=== PATIENT | female | born 1970 | race African-American/Black ===

== ENCOUNTER 2016-09-23 06:40 | Inpatient (IN) | payer MEDICARE, OTHER ==
[~2016-09-23] VITALS: Ht 174 cm; Wt 105.9 kg
[~2016-09-23 06:40] MED LIST: GABA-318 PO; RISP3 PO
[2016-09-23] MEDS ORDERED: AMOX500C2 PO (06:50)
[2016-09-23] MEDS ORDERED: METF500T4 PO (06:50)
[2016-09-23] MEDS ORDERED: ALBU8.5H IH (06:50)
[2016-09-23] MEDS ORDERED: HYDR-4031 PO (06:50)
[2016-09-23] MEDS ORDERED: RISP4 PO (06:50)
[2016-09-23] MEDS ORDERED: ALBU8HFA IN (06:50)
[2016-09-23] MEDS ORDERED: METO25 PO (06:50)
[2016-09-23] MEDS ORDERED: LISI10TA PO (06:50)
[2016-09-23 06:52] LABS: GLUCOSE,POINT OF CARE 183 MG/DL (70-110)
[2016-09-23 07:50] LABS: BASOPHILS # (AUTO) 0.04 K/uL (0.00-0.20); BASOPHILS % (AUTO) 0.6 % (0.0-2.0); EOSINOPHILS # (AUTO) 0.07 K/uL (0.00-0.70); EOSINOPHILS % (AUTO) 1.18 % (1.0-6.0); HEMATOCRIT 28.7 % (36-46); HEMOGLOBIN 9.7 g/dL (12.0-16.0); LYMPHOCYTES % (AUTO) 15.1 % (22.0-44.0); MEAN CORPUSCULAR HEMOGLOBIN 28.8 pg (26.0-34.0); MEAN CORPUSCULAR HGB CONC 33.6 G/dL (31.0-37.0); MEAN CORPUSCULAR VOLUME 86 fL (80-100); MONOCYTES # (AUTO) 0.4 K/uL (0.1-1.0); MONOCYTES % (AUTO) 6.2 % (2.0-9.0); NEUTROPHILS # (AUTO) 4.8 K/uL (1.8-7.7); NEUTROPHILS % (AUTO) 76.9 % (40.0-70.0); PLATELET COUNT (AUTO) 301 K/uL (150-450); RED BLOOD CELL COUNT(AUTO) 3.35 MIL/uL (4.00-5.20); RED CELL DISTRIBUTION WIDTH 15.4 % (11.5-14.5); WHITE BLOOD COUNT (AUTO) 6.3 K/uL (4.5-11.0)
[2016-09-23 07:55] LABS: ANION GAP 10 mmol/L (8-16); CALCIUM, TOTAL 8.2 mg/dL (8.8-10.5); CARBON DIOXIDE 27 mmol/L (22-29); CHLORIDE 108 mmol/L (98-107); GLOMERULAR FILTR. RATE CALC > 60 mL/min (>60); SODIUM SERUM 145 mmol/L (136-145); UREA NITROGEN, BLOOD 5 mg/dL (7-18)
[2016-09-23 08:01] LABS: PROTHROMBIN TIME 10.4 SEC (9.4-11.6)
[2016-09-23 08:18] LABS: B-TYPE NATRIURETIC PEPTIDE 180 pg/mL (0-100)
[2016-09-23 08:20] LABS: ALANINE AMINOTRANSFERASE 15 U/L (12-78); ALBUMIN 3.1 g/dL (3.4-5.0); ASPARTATE AMINOTRANSFERASE 15 U/L (15-37); BILIRUBIN,TOTAL 0.3 mg/dL (0.1-1.0); CREATINE KINASE MB < 0.5 ng/mL (0-5); CREATINE KINASE, TOTAL 83 U/L (26-192); TOTAL PROTEIN, SERUM 6.3 g/dL (6.4-8.2)
[2016-09-23 08:53] LABS: APPEARANCE,URINE CLEAR (CLEAR); GLUCOSE, URINE (UA) NEGATIVE (NEGATIVE); KETONES,URINE NEGATIVE (NEGATIVE); LEUKOCYTE ESTERASE ,URINE NEGATIVE (NEGATIVE); OCCULT BLOOD,URINE NEGATIVE (NEGATIVE); PH,URINE 5.5 (5.0-8.0); PROTEIN,URINE NEGATIVE (NEGATIVE)
[2016-09-23 08:55] LABS: ADD UA MICROSCOPIC NO
[2016-09-23] MEDS ORDERED: FUROSEMIDE 40 MG/4 ML VIAL IVP ONE (09:00)
[2016-09-23] MEDS ORDERED: ONDANSETRON HCL 4 MG/2 ML VIAL IVP PRN ×2 (09:15→19:00)
[2016-09-23] MEDS ORDERED: ACETAMINOPHEN 325 MG TABLET PO PRN ×2 (09:15→19:00)
[2016-09-23] MEDS ORDERED: 0.9% SODIUM CHLORIDE 10 ML SYRINGE IVP PRN ×2 (09:15→19:00)
[2016-09-23 12:22] LABS: GLUCOSE,POINT OF CARE 100 MG/DL (70-110)
[2016-09-23] MEDS ORDERED: IBUPROFEN 600 MG TABLET PO ONE (14:15)
[2016-09-23] MEDS ORDERED: POTASSIUM CHLORIDE 20 MEQ ER TABLET PO ONE (16:00)
[2016-09-23 16:28] VITALS: BP 143/89
[2016-09-23] MEDS ORDERED: IBUPROFEN 600 MG TABLET PO PRN (17:15)
[2016-09-23] MEDS ORDERED: HydrOXYzine PAMOATE 50 MG CAPSULE PO PRN (17:15)
[2016-09-23] MEDS ORDERED: LEVALBUTEROL TARTRATE HFA 45 MCG/PUFF 15 GM INHALER IH PRN (17:15)
[2016-09-23] MEDS ORDERED: PNEUMOCOCCAL VACCINE POLYVALENT 0.5 ML VIAL [PPSV23] IM ONE (18:30)
[2016-09-23] MEDS ORDERED: ALBUTEROL SULFATE 2.5 MG/0.5 ML NEB SOLUTION NEB PRN (19:00)
[2016-09-23] MEDS ORDERED: DEXTROSE 50%-WATER 25 GM/50 ML SYRINGE IVP PRN (19:00)
[2016-09-23] MEDS ORDERED: OxyCODONE HCL/ACETAMINOPHEN 5-325 MG TABLET PO PRN ×2 (19:00)
[2016-09-23] MEDS ORDERED: INSULIN ASPART 100 UNITS/ML SQ PRN (19:00)
[2016-09-23] MEDS ORDERED: MAGNESIUM HYDROXIDE SUSPENSION 30 ML UDCUP PO PRN (19:00)
[2016-09-23] MEDS: MetFORMIN HCL 500 MG TABLET PO SCH (19:10)
[2016-09-23 19:20] VITALS: BP 123/87
[2016-09-23] MEDS: PANTOPRAZOLE SODIUM 40 MG/VIAL IVP SCH (20:43)
[2016-09-23] MEDS: POTASSIUM CHLORIDE 8 MEQ ER TABLET PO SCH (20:43)
[2016-09-23] MEDS: LISINOPRIL 20 MG TABLET PO SCH (20:43)
[2016-09-23] MEDS: FUROSEMIDE 40 MG/4 ML VIAL IVP SCH (20:43)
[2016-09-23] MEDS ORDERED: METOPROLOL TARTRATE 25 MG TABLET PO SCH (21:00)
[2016-09-23 21:39] VITALS: BP 138/87
[2016-09-23] MEDS: RisperiDONE 4 MG TABLET PO SCH (21:41)
[2016-09-23] MEDS: METOPROLOL TARTRATE 25 MG TABLET PO SCH (21:41)
[2016-09-23] MEDS: HEPARIN SODIUM,PORCINE 5,000 UNITS/ML VIAL SQ SCH (21:41)
[2016-09-23] MEDS: DOCUSATE SODIUM 100 MG CAPSULE PO SCH (21:41)
[2016-09-23] MEDS: AMOXICILLIN TRIHYDRATE 500 MG CAPSULE PO SCH (21:41)
[2016-09-23] MEDS: ALBUTEROL SULFATE HFA 90 MCG/PUFF 8 GM INHALER IH SCH (21:42)
[2016-09-23] MEDS: IPRATROPIUM BROMIDE 0.5 MG/2.5 ML NEB SOLUTION NEB SCH (21:44)
[2016-09-23] MEDS: ALBUTEROL SULFATE 2.5 MG/0.5 ML NEB SOLUTION NEB SCH (21:44)
[2016-09-23 23:34] VITALS: BP 122/71
[2016-09-24] MEDS: ALBUTEROL SULFATE 2.5 MG/0.5 ML NEB SOLUTION NEB SCH ×3 (03:26→14:00)
[2016-09-24] MEDS: IPRATROPIUM BROMIDE 0.5 MG/2.5 ML NEB SOLUTION NEB SCH ×3 (03:26→14:00)
[2016-09-24 04:08] VITALS: BP 138/92
[2016-09-24 06:20] LABS: BASOPHILS % (AUTO) 0.7 % (0.0-2.0); EOSINOPHILS % (AUTO) 3.1 % (1.0-6.0); HEMATOCRIT 30.7 % (36-46); HEMOGLOBIN 10.3 g/dL (12.0-16.0); LYMPHOCYTES # (AUTO) 1.4 K/uL (1.0-4.8); LYMPHOCYTES % (AUTO) 18.8 % (22.0-44.0); MEAN CORPUSCULAR HEMOGLOBIN 29.4 pg (26.0-34.0); MEAN CORPUSCULAR HGB CONC 33.6 G/dL (31.0-37.0); MEAN CORPUSCULAR VOLUME 87 fL (80-100); MONOCYTES # (AUTO) 0.5 K/uL (0.1-1.0); MONOCYTES % (AUTO) 6.7 % (2.0-9.0); NEUTROPHILS # (AUTO) 5.3 K/uL (1.8-7.7); NEUTROPHILS % (AUTO) 70.7 % (40.0-70.0); PLATELET COUNT (AUTO) 319 K/uL (150-450); RED BLOOD CELL COUNT(AUTO) 3.51 MIL/uL (4.00-5.20); RED CELL DISTRIBUTION WIDTH 15.5 % (11.5-14.5); WHITE BLOOD COUNT (AUTO) 7.5 K/uL (4.5-11.0)
[2016-09-24 06:36] LABS: B-TYPE NATRIURETIC PEPTIDE 127 pg/mL (0-100)
[2016-09-24 06:42] LABS: ALANINE AMINOTRANSFERASE 13 U/L (12-78); ANION GAP 10 mmol/L (8-16); ASPARTATE AMINOTRANSFERASE 13 U/L (15-37); BILIRUBIN,TOTAL 0.5 mg/dL (0.1-1.0); CALCIUM, TOTAL 8.3 mg/dL (8.8-10.5); CARBON DIOXIDE 27 mmol/L (22-29); CHLORIDE 104 mmol/L (98-107); CREATININE 0.82 mg/dL (0.60-1.30); GLOMERULAR FILTR. RATE CALC > 60 mL/min (>60); POTASSIUM 3.3 mmol/L (3.5-5.1); SODIUM SERUM 141 mmol/L (136-145); TOTAL PROTEIN, SERUM 6.4 g/dL (6.4-8.2); UREA NITROGEN, BLOOD 7 mg/dL (7-18)
[2016-09-24 08:20] VITALS: BP 123/82
[2016-09-24] MEDS ORDERED: LISINOPRIL 20 MG TABLET PO SCH (09:00)
[2016-09-24] MEDS ORDERED: RisperiDONE 4 MG TABLET PO SCH (09:00)
[2016-09-24] MEDS: PANTOPRAZOLE SODIUM 40 MG/VIAL IVP SCH (09:12)
[2016-09-24] MEDS: FUROSEMIDE 40 MG/4 ML VIAL IVP SCH (09:13)
[2016-09-24] MEDS: METOPROLOL TARTRATE 25 MG TABLET PO SCH (09:18)
[2016-09-24] MEDS: AMOXICILLIN TRIHYDRATE 500 MG CAPSULE PO SCH (09:19)
[2016-09-24] MEDS: DOCUSATE SODIUM 100 MG CAPSULE PO SCH (09:19)
[2016-09-24] MEDS: LISINOPRIL 20 MG TABLET PO SCH (09:19)
[2016-09-24] MEDS: RisperiDONE 4 MG TABLET PO SCH (09:19)
[2016-09-24] MEDS: POTASSIUM CHLORIDE 8 MEQ ER TABLET PO SCH (09:19)
[2016-09-24] MEDS: MetFORMIN HCL 500 MG TABLET PO SCH (09:19)
[2016-09-24] MEDS: HEPARIN SODIUM,PORCINE 5,000 UNITS/ML VIAL SQ SCH (09:20)
[2016-09-24] MEDS: ALBUTEROL SULFATE HFA 90 MCG/PUFF 8 GM INHALER IH SCH (09:20)
[2016-09-24 12:40] VITALS: BP 158/75
[2016-09-24] MEDS ORDERED: POTASSIUM CHLORIDE 20 MEQ ER TABLET PO ONE (15:15)
[2016-09-24] MEDS ORDERED: FURO20 PO (15:31)
[2016-09-24] MEDS ORDERED: POTA10TA14 PO (15:35)
[2016-09-25 08:28] LABS: GLUCOSE COMMENT 1 Received Meds; GLUCOSE,POINT OF CARE 121 MG/DL (70-110)
[2016-09-25 08:28] LABS: GLUCOSE COMMENT 1 Received Meds; GLUCOSE,POINT OF CARE 162 MG/DL (70-110)
[2016-09-25 08:28] LABS: GLUCOSE,POINT OF CARE 145 MG/DL (70-110)
[2016-09-25] MEDS ORDERED: FUROSEMIDE 20 MG TABLET PO SCH (09:00)
[2016-09-25 17:32] LABS: GLUCOSE COMMENT 1 Received Meds; GLUCOSE,POINT OF CARE 112 MG/DL (70-110)
== END 2016-09-24 16:45 | disposition home or self-care (01) | DRG 293 ==
LOC: EMS 06:41 → 5S 15:45
PROVIDERS: ADMIT Internal Medicine; ATTEND Internal Medicine
DX: I11.0 Hypertensive heart disease with heart failure (principal); I50.9 Heart failure, unspecified; E11.9 Type 2 diabetes mellitus without complications; J44.9 Chronic obstructive pulmonary disease, unspecified; F20.9 Schizophrenia, unspecified; E66.9 Obesity, unspecified; F17.210 Nicotine dependence, cigarettes, uncomplicated; Z68.35 Body mass index [BMI] 35.0-35.9, adult; Z88.2 Allergy status to sulfonamides; Z88.8 Allergy status to other drugs, medicaments and biological substances; Z79.899 Other long term (current) drug therapy; Z79.84 Long term (current) use of oral hypoglycemic drugs; Z98.891 History of uterine scar from previous surgery
CPT/HCPCS: 82962; 84132; 93005; 93306; 94640; 96372; 96374; 96375; 96376; 99285; C9113; J1644; J1940; J3535

== ENCOUNTER 2016-12-30 01:49 | Inpatient (IN) | payer MEDICARE, MEDICAID ==
[~2016-12-30] VITALS: Ht 175.3 cm; Wt 106.1 kg
[~2016-12-30 01:49] MED LIST changes: +ACYC200C PO; +ALBU8.5H8 IH; +ALBU8HFA IN; +DILT120C88 PO; -GABA-318 PO; +LISI10TA PO; +METO25 PO; +OXCA300T PO; +POTA10TA14 PO; -RISP3 PO; +RISP4 PO; +SIMV-261 PO; +VIST50 PO
[2016-12-30] MEDS ORDERED: QUEtiapine FUMARATE 100 MG TABLET PO PRN (02:45)
[2016-12-30 03:40] VITALS: BP 122/80
[2016-12-30 04:31] LABS: GLUCOSE,POINT OF CARE 250 MG/DL (70-110)
[2016-12-30] MEDS ORDERED: PNEUMOCOCCAL VACCINE POLYVALENT 0.5 ML VIAL [PPSV23] IM ONE (04:45)
[2016-12-30] MEDS ORDERED: INFLUENZA VIRUS VACCINE QVS 2017-18 (3YR+)/PF 60 MCG/0.5 ML SYRINGE IM ONE (04:45)
[2016-12-30] MEDS ORDERED: LISI-662 PO (07:58)
[2016-12-30] MEDS ORDERED: AMIT50TA3 PO (07:58)
[2016-12-30] MEDS ORDERED: ALBU8HFA IH (07:58)
[2016-12-30] MEDS ORDERED: GLIP2.5ER PO (07:58)
[2016-12-30] MEDS ORDERED: HALO5 PO (07:58)
[2016-12-30] MEDS ORDERED: GLUCAGON,HUMAN RECOMBINANT 1 MG VIAL IM PRN (08:00)
[2016-12-30] MEDS ORDERED: TRAZ-147 PO (08:01)
[2016-12-30] MEDS ORDERED: QUET200T PO (08:01)
[2016-12-30] MEDS ORDERED: MIRT30 PO (08:01)
[2016-12-30] MEDS ORDERED: RISP4 PO (08:01)
[2016-12-30 08:04] VITALS: BP 126/75
[2016-12-30] MEDS ORDERED: BENZOCAINE/MENTHOL LOZENGE MM PRN (09:45)
[2016-12-30] MEDS ORDERED: LOPERAMIDE HCL 2 MG CAPSULE PO PRN (09:45)
[2016-12-30] MEDS ORDERED: IBUPROFEN 600 MG TABLET PO PRN (09:45)
[2016-12-30] MEDS ORDERED: PETROLATUM,WHITE 71 GM JELLY TP PRN (09:45)
[2016-12-30] MEDS ORDERED: MAG HYDROX/AL HYDROX/SIMETH ES 30 ML SUSPENSION UDCUP PO PRN (09:45)
[2016-12-30] MEDS ORDERED: ALBUTEROL SULFATE HFA 90 MCG/PUFF 8 GM INHALER IH PRN (09:45)
[2016-12-30] MEDS ORDERED: ONDANSETRON HCL 4 MG TABLET PO PRN (09:45)
[2016-12-30] MEDS ORDERED: ACETAMINOPHEN 325 MG TABLET PO PRN (09:45)
[2016-12-30] MEDS ORDERED: BACITRACIN 28.4 GM OINTMENT TP PRN (09:45)
[2016-12-30] MEDS ORDERED: CloNIDine HCL 0.1 MG TABLET PO PRN (09:45)
[2016-12-30] MEDS ORDERED: MAGNESIUM HYDROXIDE SUSPENSION 30 ML UDCUP PO PRN (09:45)
[2016-12-30 11:22] LABS: GLUCOSE,POINT OF CARE 115 MG/DL (70-110)
[2016-12-30] MEDS: LORazepam 1 MG TABLET PO PRN ×2 (12:32→16:51)
[2016-12-30 16:16] VITALS: BP 120/78
[2016-12-30] MEDS: METOPROLOL TARTRATE 25 MG TABLET PO SCH (16:51)
[2016-12-30 16:58] LABS: GLUCOSE,POINT OF CARE 112 MG/DL (70-110)
[2016-12-30] MEDS: ZOLPIDEM TARTRATE 10 MG TABLET PO PRN (20:17)
[2016-12-30] MEDS: QUEtiapine FUMARATE 200 MG TABLET PO SCH (20:17)
[2016-12-30 20:28] LABS: GLUCOSE,POINT OF CARE 149 MG/DL (70-110)
[2016-12-30] MEDS: INSULIN ASPART 100 UNITS/ML SQ PRN (21:02)
[2016-12-31 06:08] LABS: GLUCOSE,POINT OF CARE 174 MG/DL (70-110)
[2016-12-31] MEDS: MetFORMIN HCL 500 MG TABLET PO SCH (06:28)
[2016-12-31] MEDS: GlipiZIDE 10 MG TABLET PO SCH (06:28)
[2016-12-31] MEDS: INSULIN ASPART 100 UNITS/ML SQ PRN (06:45)
[2016-12-31 07:36] LABS: BASOPHILS % (AUTO) 1.1 % (0.0-2.0); EOSINOPHILS % (AUTO) 3.9 % (1.0-6.0); HEMATOCRIT 35.2 % (36-46); HEMOGLOBIN 12.1 g/dL (12.0-16.0); LYMPHOCYTES # (AUTO) 2.1 K/uL (1.0-4.8); LYMPHOCYTES % (AUTO) 28.9 % (22.0-44.0); MEAN CORPUSCULAR HEMOGLOBIN 29.2 pg (26.0-34.0); MEAN CORPUSCULAR HGB CONC 34.4 G/dL (31.0-37.0); MEAN CORPUSCULAR VOLUME 85 fL (80-100); MONOCYTES # (AUTO) 0.3 K/uL (0.1-1.0); MONOCYTES % (AUTO) 4.6 % (2.0-9.0); NEUTROPHILS # (AUTO) 4.4 K/uL (1.8-7.7); NEUTROPHILS % (AUTO) 61.5 % (40.0-70.0); PLATELET COUNT (AUTO) 244 K/uL (150-450); RED BLOOD CELL COUNT(AUTO) 4.15 MIL/uL (4.00-5.20); RED CELL DISTRIBUTION WIDTH 16.8 % (11.5-14.5); WHITE BLOOD COUNT (AUTO) 7.1 K/uL (4.5-11.0)
[2016-12-31 07:48] LABS: ANION GAP 8 mmol/L (8-16); CARBON DIOXIDE 24 mmol/L (22-29); CHLORIDE 105 mmol/L (98-107); CREATININE 0.66 mg/dL (0.60-1.30); GLOMERULAR FILTR. RATE CALC > 60 mL/min (>60); POTASSIUM 3.6 mmol/L (3.5-5.1); SODIUM SERUM 137 mmol/L (136-145); UREA NITROGEN, BLOOD 8 mg/dL (7-18)
[2016-12-31] MEDS: DILTIAZEM HCL CD 120 MG ER CAPSULE PO SCH (09:45)
[2016-12-31] MEDS: HALOPERIDOL 5 MG TABLET PO SCH (09:45)
[2016-12-31] MEDS: METOPROLOL TARTRATE 25 MG TABLET PO SCH ×2 (09:46→16:41)
[2016-12-31] MEDS: LORazepam 1 MG TABLET PO PRN ×2 (09:53→16:41)
[2016-12-31 11:57] LABS: GLUCOSE,POINT OF CARE 92 MG/DL (70-110)
[2016-12-31 16:30] VITALS: BP 115/70
[2016-12-31 16:58] LABS: GLUCOSE,POINT OF CARE 162 MG/DL (70-110)
[2016-12-31] MEDS: QUEtiapine FUMARATE 200 MG TABLET PO SCH (20:58)
[2016-12-31] MEDS: ZOLPIDEM TARTRATE 10 MG TABLET PO PRN (21:03)
[2016-12-31 21:07] LABS: GLUCOSE,POINT OF CARE 161 MG/DL (70-110)
[2017-01-01] MEDS: GlipiZIDE 10 MG TABLET PO SCH (06:27)
[2017-01-01] MEDS: MetFORMIN HCL 500 MG TABLET PO SCH (06:28)
[2017-01-01 06:33] LABS: GLUCOSE,POINT OF CARE 159 MG/DL (70-110)
[2017-01-01 08:33] LABS: CHOL/HDL RATIO 4.3 (3.9-5.7); THYROID STIMULATING HORMONE 1.17 uIU/mL (0.36-3.74)
[2017-01-01] MEDS: LORazepam 1 MG TABLET PO PRN ×3 (08:34→18:08)
[2017-01-01] MEDS: HALOPERIDOL 5 MG TABLET PO SCH (08:35)
[2017-01-01] MEDS: DILTIAZEM HCL CD 120 MG ER CAPSULE PO SCH (08:35)
[2017-01-01] MEDS: METOPROLOL TARTRATE 25 MG TABLET PO SCH ×2 (08:35→16:42)
[2017-01-01 11:39] LABS: GLUCOSE,POINT OF CARE 111 MG/DL (70-110)
[2017-01-01 16:20] VITALS: BP 127/68
[2017-01-01 17:17] LABS: GLUCOSE,POINT OF CARE 144 MG/DL (70-110)
[2017-01-01] MEDS: QUEtiapine FUMARATE 200 MG TABLET PO SCH (20:38)
[2017-01-01] MEDS: ZOLPIDEM TARTRATE 10 MG TABLET PO PRN (21:10)
[2017-01-01 21:27] LABS: GLUCOSE,POINT OF CARE 164 MG/DL (70-110)
[2017-01-02 06:05] VITALS: BP 125/70
[2017-01-02] MEDS: GlipiZIDE 10 MG TABLET PO SCH (06:31)
[2017-01-02 06:49] LABS: GLUCOSE,POINT OF CARE 169 MG/DL (70-110)
[2017-01-02] MEDS: MetFORMIN HCL 500 MG TABLET PO SCH (06:57)
[2017-01-02 08:00] VITALS: BP 129/86
[2017-01-02] MEDS: HALOPERIDOL 5 MG TABLET PO SCH (08:22)
[2017-01-02] MEDS: DILTIAZEM HCL CD 120 MG ER CAPSULE PO SCH (08:22)
[2017-01-02] MEDS: METOPROLOL TARTRATE 25 MG TABLET PO SCH ×2 (08:27→16:30)
[2017-01-02] MEDS ORDERED: CHOLECALCIFEROL (VIT D3) 1,000 UNITS TABLET PO SCH (09:00)
[2017-01-02] MEDS: LORazepam 1 MG TABLET PO PRN (09:41)
[2017-01-02 11:38] LABS: GLUCOSE,POINT OF CARE 98 MG/DL (70-110)
[2017-01-02 16:16] VITALS: BP 125/79
[2017-01-02 16:37] LABS: GLUCOSE,POINT OF CARE 88 MG/DL (70-110)
[2017-01-02] MEDS ORDERED: DILT-39 PO (16:45)
[2017-01-02] MEDS ORDERED: VITAD1000 PO (16:45)
[2017-01-02] MEDS ORDERED: QUET200T PO (16:45)
[2017-01-02] MEDS ORDERED: METF500T4 PO (16:45)
== END 2017-01-02 17:10 | disposition home or self-care (01) | DRG 885 ==
LOC: B3A 02:52 → EDSTATUS 03:06
PROVIDERS: ADMIT Psychiatry & Neurology Psychiatry; ATTEND Psychiatry & Neurology Child & Adolescent Psychiatry
DX: F25.0 Schizoaffective disorder, bipolar type (principal); I11.0 Hypertensive heart disease with heart failure; E11.65 Type 2 diabetes mellitus with hyperglycemia; R45.851 Suicidal ideations; I50.9 Heart failure, unspecified; F22 Delusional disorders; E66.9 Obesity, unspecified; E55.9 Vitamin D deficiency, unspecified; J45.909 Unspecified asthma, uncomplicated; F12.90 Cannabis use, unspecified, uncomplicated; F17.200 Nicotine dependence, unspecified, uncomplicated; F41.9 Anxiety disorder, unspecified; G47.00 Insomnia, unspecified; J44.9 Chronic obstructive pulmonary disease, unspecified; Z91.14 Patient's other noncompliance with medication regimen; Z88.2 Allergy status to sulfonamides; Z88.8 Allergy status to other drugs, medicaments and biological substances; Z79.51 Long term (current) use of inhaled steroids; Z79.899 Other long term (current) drug therapy; Z71.6 Tobacco abuse counseling; Z71.51 Drug abuse counseling and surveillance of drug abuser; Z68.34 Body mass index [BMI] 34.0-34.9, adult; Z28.21 Immunization not carried out because of patient refusal; Z79.84 Long term (current) use of oral hypoglycemic drugs
CPT/HCPCS: 82306; 82962; 84443; 90471; J3535

== ENCOUNTER 2017-02-19 19:46 | Inpatient (IN) | payer MEDICARE, MEDICAID ==
[~2017-02-19] VITALS: Ht 172.7 cm; Wt 104.5 kg
[~2017-02-19 19:46] MED LIST changes: -ACYC200C PO; -ALBU8.5H8 IH; -ALBU8HFA IN; +DILT-39 PO; -DILT120C88 PO; +GLIP2.5ER PO; -LISI10TA PO; +METF500T4 PO; -OXCA300T PO; -POTA10TA14 PO; +QUET200T PO; -RISP4 PO; -SIMV-261 PO; -VIST50 PO; +VITAD1000 PO
[2017-02-19 20:07] LABS: GLUCOSE,POINT OF CARE 221 MG/DL (70-110)
[2017-02-19] MEDS ORDERED: AMIT50TA3 PO (20:08)
[2017-02-19] MEDS ORDERED: MIRT30TA6 PO (20:08)
[2017-02-19] MEDS ORDERED: QUET100T33 PO (20:08)
[2017-02-19] MEDS ORDERED: TRAZ-147 PO (20:08)
[2017-02-19] MEDS ORDERED: LISI-618 PO (20:08)
[2017-02-19] MEDS ORDERED: SIMV40TA5 PO (20:08)
[2017-02-19] MEDS ORDERED: HALO5 PO (20:08)
[2017-02-19] MEDS ORDERED: HYDR50CA6 PO (20:08)
[2017-02-19] MEDS ORDERED: GLIP10TA9 PO (20:08)
[2017-02-19] MEDS ORDERED: GABA-318 PO (20:08)
[2017-02-19] MEDS ORDERED: OLAN10TA20 PO (20:08)
[2017-02-19 20:35] LABS: BASOPHILS % (AUTO) 0.9 % (0.0-2.0); EOSINOPHILS % (AUTO) 2.5 % (1.0-6.0); HEMATOCRIT 34.2 % (36-46); HEMOGLOBIN 11.9 g/dL (12.0-16.0); LYMPHOCYTES # (AUTO) 2.6 K/uL (1.0-4.8); LYMPHOCYTES % (AUTO) 39.4 % (22.0-44.0); MEAN CORPUSCULAR HEMOGLOBIN 30.4 pg (26.0-34.0); MEAN CORPUSCULAR HGB CONC 34.7 G/dL (31.0-37.0); MEAN CORPUSCULAR VOLUME 87 fL (80-100); MONOCYTES # (AUTO) 0.4 K/uL (0.1-1.0); MONOCYTES % (AUTO) 6.4 % (2.0-9.0); NEUTROPHILS # (AUTO) 3.3 K/uL (1.8-7.7); NEUTROPHILS % (AUTO) 50.8 % (40.0-70.0); PLATELET COUNT (AUTO) 238 K/uL (150-450); RED BLOOD CELL COUNT(AUTO) 3.91 MIL/uL (4.00-5.20); RED CELL DISTRIBUTION WIDTH 15.8 % (11.5-14.5); WHITE BLOOD COUNT (AUTO) 6.5 K/uL (4.5-11.0)
[2017-02-19 20:44] LABS: ALANINE AMINOTRANSFERASE 21 U/L (12-78); ALBUMIN 3.2 g/dL (3.4-5.0); ANION GAP 10 mmol/L (8-16); ASPARTATE AMINOTRANSFERASE 18 U/L (15-37); BILIRUBIN,TOTAL 0.2 mg/dL (0.1-1.0); CALCIUM, TOTAL 7.9 mg/dL (8.8-10.5); CARBON DIOXIDE 26 mmol/L (22-29); CHLORIDE 103 mmol/L (98-107); CREATININE 0.72 mg/dL (0.60-1.30); GLOMERULAR FILTR. RATE CALC > 60 mL/min (>60); SODIUM SERUM 139 mmol/L (136-145); TOTAL PROTEIN, SERUM 6.8 g/dL (6.4-8.2); UREA NITROGEN, BLOOD 4 mg/dL (7-18)
[2017-02-19] MEDS ORDERED: DiphenhydrAMINE HCL 50 MG/ML VIAL IM ONE (20:45)
[2017-02-19] MEDS ORDERED: HALOPERIDOL LACTATE 5 MG/ML VIAL IM ONE (20:45)
[2017-02-19] MEDS ORDERED: ZOLPIDEM TARTRATE 10 MG TABLET PO PRN (20:45)
[2017-02-19] MEDS ORDERED: POTASSIUM CHLORIDE 20 MEQ ER TABLET PO ONE (21:00)
[2017-02-19 21:03] LABS: APPEARANCE,URINE CLEAR (CLEAR); GLUCOSE, URINE (UA) NEGATIVE (NEGATIVE); KETONES,URINE NEGATIVE (NEGATIVE); LEUKOCYTE ESTERASE ,URINE NEGATIVE (NEGATIVE); OCCULT BLOOD,URINE NEGATIVE (NEGATIVE); PROTEIN,URINE NEGATIVE (NEGATIVE)
[2017-02-19 21:06] LABS: ADD UA MICROSCOPIC NO
[2017-02-19 21:08] LABS: CHOL/HDL RATIO 4.1 (3.9-5.7); THYROID STIMULATING HORMONE 0.82 uIU/mL (0.36-3.74)
[2017-02-19 22:07] VITALS: BP 124/84
[2017-02-19 22:17] VITALS: BP 124/84
[2017-02-19] MEDS ORDERED: PNEUMOCOCCAL VACCINE POLYVALENT 0.5 ML VIAL [PPSV23] IM ONE (22:30)
[2017-02-19] MEDS ORDERED: INFLUENZA VIRUS VACCINE QVS 2017-18 (3YR+)/PF 60 MCG/0.5 ML SYRINGE IM ONE (22:30)
[2017-02-19] MEDS ORDERED: GLUCAGON,HUMAN RECOMBINANT 1 MG VIAL IM PRN (23:15)
[2017-02-19] MEDS ORDERED: ACETAMINOPHEN 325 MG TABLET PO PRN (23:15)
[2017-02-20 06:18] LABS: GLUCOSE,POINT OF CARE 144 MG/DL (70-110)
[2017-02-20 06:54] VITALS: BP 135/83
[2017-02-20] MEDS: GlipiZIDE 10 MG TABLET PO SCH ×2 (06:55→17:02)
[2017-02-20] MEDS: MetFORMIN HCL 500 MG TABLET PO SCH (06:55)
[2017-02-20 08:32] VITALS: BP 124/79
[2017-02-20] MEDS ORDERED: BENZOCAINE/MENTHOL LOZENGE MM PRN (09:00)
[2017-02-20] MEDS ORDERED: ONDANSETRON HCL 4 MG TABLET PO PRN (09:00)
[2017-02-20] MEDS ORDERED: MAGNESIUM HYDROXIDE SUSPENSION 30 ML UDCUP PO PRN (09:00)
[2017-02-20] MEDS ORDERED: ALBUTEROL SULFATE HFA 90 MCG/PUFF 8 GM INHALER IH PRN (09:00)
[2017-02-20] MEDS: NICOTINE 21 MG/24 HOUR PATCH TD SCH (09:00)
[2017-02-20 09:01] LABS: ANION GAP 9 mmol/L (8-16); CALCIUM, TOTAL 7.7 mg/dL (8.8-10.5); CARBON DIOXIDE 25 mmol/L (22-29); CHLORIDE 105 mmol/L (98-107); CREATININE 0.71 mg/dL (0.60-1.30); GLOMERULAR FILTR. RATE CALC > 60 mL/min (>60); POTASSIUM 3.3 mmol/L (3.5-5.1); SODIUM SERUM 139 mmol/L (136-145); UREA NITROGEN, BLOOD 4 mg/dL (7-18)
[2017-02-20] MEDS: OMEGA-3/DHA/EPA/FISH OIL 1,000 MG CAPSULE PO SCH (09:33)
[2017-02-20] MEDS: CHOLECALCIFEROL (VIT D3) 1,000 UNITS TABLET PO SCH (09:33)
[2017-02-20] MEDS: METOPROLOL TARTRATE 25 MG TABLET PO SCH ×2 (09:33→17:02)
[2017-02-20] MEDS: LISINOPRIL 20 MG TABLET PO SCH (09:33)
[2017-02-20] MEDS ORDERED: POTASSIUM CHLORIDE 20 MEQ ER TABLET PO ONE (11:30)
[2017-02-20 11:38] LABS: GLUCOSE,POINT OF CARE 69 MG/DL (70-110)
[2017-02-20 11:38] LABS: GLUCOSE,POINT OF CARE 77 MG/DL (70-110)
[2017-02-20] MEDS: GABAPENTIN 300 MG CAPSULE PO SCH ×2 (12:23→17:02)
[2017-02-20] MEDS: LORazepam 2 MG TABLET PO PRN ×2 (12:24→17:01)
[2017-02-20 16:07] VITALS: BP 139/87
[2017-02-20 16:42] LABS: GLUCOSE,POINT OF CARE 97 MG/DL (70-110)
[2017-02-20] MEDS: SIMVASTATIN 40 MG TABLET PO SCH (20:48)
[2017-02-20] MEDS: OLANZapine 10 MG TABLET PO SCH (20:48)
[2017-02-21 01:35] VITALS: BP 119/86
[2017-02-21] MEDS: LORazepam 2 MG TABLET PO PRN ×2 (01:41→19:21)
[2017-02-21 06:23] LABS: GLUCOSE,POINT OF CARE 154 MG/DL (70-110)
[2017-02-21] MEDS: MetFORMIN HCL 500 MG TABLET PO SCH (06:40)
[2017-02-21] MEDS: GlipiZIDE 10 MG TABLET PO SCH ×2 (06:40→16:35)
[2017-02-21 08:09] VITALS: BP 117/77
[2017-02-21] MEDS: OMEGA-3/DHA/EPA/FISH OIL 1,000 MG CAPSULE PO SCH (08:43)
[2017-02-21] MEDS: LISINOPRIL 20 MG TABLET PO SCH (08:43)
[2017-02-21] MEDS: GABAPENTIN 300 MG CAPSULE PO SCH ×3 (08:43→16:35)
[2017-02-21] MEDS: OLANZapine 5 MG TABLET PO SCH (08:43)
[2017-02-21] MEDS: METOPROLOL TARTRATE 25 MG TABLET PO SCH ×2 (08:43→16:35)
[2017-02-21] MEDS: CHOLECALCIFEROL (VIT D3) 1,000 UNITS TABLET PO SCH (08:43)
[2017-02-21] MEDS: NICOTINE 21 MG/24 HOUR PATCH TD SCH (08:50)
[2017-02-21] MEDS ORDERED: MIRTAZAPINE 30 MG TABLET PO SCH (09:00)
[2017-02-21] MEDS ORDERED: TraZODone HCL 100 MG TABLET PO SCH (09:00)
[2017-02-21 11:13] LABS: GLUCOSE,POINT OF CARE 144 MG/DL (70-110)
[2017-02-21 16:22] LABS: GLUCOSE,POINT OF CARE 133 MG/DL (70-110)
[2017-02-21 16:39] VITALS: BP 135/78
[2017-02-21 20:22] LABS: GLUCOSE,POINT OF CARE 125 MG/DL (70-110)
[2017-02-21] MEDS: SIMVASTATIN 40 MG TABLET PO SCH (20:37)
[2017-02-21] MEDS: TraZODone HCL 100 MG TABLET PO SCH (20:37)
[2017-02-21] MEDS: MIRTAZAPINE 30 MG TABLET PO SCH (20:38)
[2017-02-21] MEDS: OLANZapine 10 MG TABLET PO SCH (20:38)
[2017-02-22] MEDS: LORazepam 2 MG TABLET PO PRN ×2 (03:09→13:02)
[2017-02-22 03:12] VITALS: BP 139/90
[2017-02-22 05:47] LABS: GLUCOSE,POINT OF CARE 173 MG/DL (70-110)
[2017-02-22] MEDS: GlipiZIDE 10 MG TABLET PO SCH ×2 (05:59→16:35)
[2017-02-22] MEDS: INSULIN ASPART 100 UNITS/ML SQ PRN (06:44)
[2017-02-22] MEDS: MetFORMIN HCL 500 MG TABLET PO SCH (06:45)
[2017-02-22 08:09] VITALS: BP 113/67
[2017-02-22] MEDS: CHOLECALCIFEROL (VIT D3) 1,000 UNITS TABLET PO SCH (08:49)
[2017-02-22] MEDS: OMEGA-3/DHA/EPA/FISH OIL 1,000 MG CAPSULE PO SCH (08:49)
[2017-02-22] MEDS: GABAPENTIN 300 MG CAPSULE PO SCH ×3 (08:49→16:35)
[2017-02-22] MEDS: OLANZapine 5 MG TABLET PO SCH (08:49)
[2017-02-22] MEDS: LISINOPRIL 20 MG TABLET PO SCH (08:49)
[2017-02-22] MEDS: METOPROLOL TARTRATE 25 MG TABLET PO SCH ×2 (08:49→16:35)
[2017-02-22] MEDS: MULTIVITAMINS WITH IRON TABLET PO SCH (08:49)
[2017-02-22] MEDS: NICOTINE 21 MG/24 HOUR PATCH TD SCH (08:55)
[2017-02-22 11:07] LABS: GLUCOSE,POINT OF CARE 161 MG/DL (70-110)
[2017-02-22] MEDS: HALOPERIDOL 5 MG TABLET PO PRN (14:33)
[2017-02-22 16:08] VITALS: BP 125/68
[2017-02-22 16:32] LABS: GLUCOSE,POINT OF CARE 98 MG/DL (70-110)
[2017-02-22 20:22] LABS: GLUCOSE,POINT OF CARE 113 MG/DL (70-110)
[2017-02-22] MEDS: OLANZapine 10 MG TABLET PO SCH (20:39)
[2017-02-22] MEDS: TraZODone HCL 100 MG TABLET PO SCH (20:39)
[2017-02-22] MEDS: MIRTAZAPINE 30 MG TABLET PO SCH (20:39)
[2017-02-22] MEDS: SIMVASTATIN 40 MG TABLET PO SCH (20:39)
[2017-02-23 06:07] LABS: GLUCOSE,POINT OF CARE 129 MG/DL (70-110)
[2017-02-23] MEDS: GlipiZIDE 10 MG TABLET PO SCH ×2 (06:39→17:03)
[2017-02-23] MEDS: MetFORMIN HCL 500 MG TABLET PO SCH (06:40)
[2017-02-23 06:49] VITALS: BP 144/92
[2017-02-23 08:35] VITALS: BP 127/78
[2017-02-23] MEDS: NICOTINE 21 MG/24 HOUR PATCH TD SCH (09:00)
[2017-02-23] MEDS: METOPROLOL TARTRATE 25 MG TABLET PO SCH ×2 (09:16→17:02)
[2017-02-23] MEDS: OMEGA-3/DHA/EPA/FISH OIL 1,000 MG CAPSULE PO SCH (09:16)
[2017-02-23] MEDS: MULTIVITAMINS WITH IRON TABLET PO SCH (09:16)
[2017-02-23] MEDS: CHOLECALCIFEROL (VIT D3) 1,000 UNITS TABLET PO SCH (09:16)
[2017-02-23] MEDS: OLANZapine 5 MG TABLET PO SCH (09:17)
[2017-02-23] MEDS: LISINOPRIL 20 MG TABLET PO SCH (09:17)
[2017-02-23] MEDS: GABAPENTIN 300 MG CAPSULE PO SCH ×3 (09:17→17:02)
[2017-02-23] MEDS: HALOPERIDOL 5 MG TABLET PO PRN (10:23)
[2017-02-23 11:09] VITALS: BP 124/72
[2017-02-23] MEDS: LORazepam 2 MG TABLET PO PRN (11:09)
[2017-02-23] MEDS: IBUPROFEN 600 MG TABLET PO PRN (11:09)
[2017-02-23] MEDS: INSULIN ASPART 100 UNITS/ML SQ PRN ×2 (11:10→21:16)
[2017-02-23 11:22] LABS: GLUCOSE,POINT OF CARE 185 MG/DL (70-110)
[2017-02-23 16:19] VITALS: BP 103/61
[2017-02-23 17:37] LABS: GLUCOSE,POINT OF CARE 128 MG/DL (70-110)
[2017-02-23] MEDS: OLANZapine 10 MG TABLET PO SCH (20:12)
[2017-02-23] MEDS: SIMVASTATIN 40 MG TABLET PO SCH (20:12)
[2017-02-23] MEDS: MIRTAZAPINE 30 MG TABLET PO SCH (20:12)
[2017-02-23] MEDS: TraZODone HCL 100 MG TABLET PO SCH (20:12)
[2017-02-23 21:07] LABS: GLUCOSE,POINT OF CARE 152 MG/DL (70-110)
[2017-02-24 00:03] VITALS: BP 135/91
[2017-02-24] MEDS: LORazepam 2 MG TABLET PO PRN ×3 (00:04→18:49)
[2017-02-24] MEDS: HALOPERIDOL 5 MG TABLET PO PRN (00:04)
[2017-02-24] MEDS: GlipiZIDE 10 MG TABLET PO SCH ×2 (06:36→16:40)
[2017-02-24 06:47] LABS: GLUCOSE COMMENT 1 Received Meds; GLUCOSE,POINT OF CARE 127 MG/DL (70-110)
[2017-02-24] MEDS: MetFORMIN HCL 500 MG TABLET PO SCH (06:59)
[2017-02-24 08:44] VITALS: BP 109/72
[2017-02-24] MEDS: NICOTINE 21 MG/24 HOUR PATCH TD SCH (09:00)
[2017-02-24 09:05] VITALS: BP 114/74
[2017-02-24] MEDS: METOPROLOL TARTRATE 25 MG TABLET PO SCH ×2 (09:09→16:40)
[2017-02-24] MEDS: OLANZapine 10 MG TABLET PO SCH ×2 (09:09→20:11)
[2017-02-24] MEDS: LISINOPRIL 20 MG TABLET PO SCH (09:09)
[2017-02-24] MEDS: MULTIVITAMINS WITH IRON TABLET PO SCH (09:09)
[2017-02-24] MEDS: GABAPENTIN 300 MG CAPSULE PO SCH ×3 (09:09→16:40)
[2017-02-24] MEDS: OMEGA-3/DHA/EPA/FISH OIL 1,000 MG CAPSULE PO SCH (09:09)
[2017-02-24] MEDS: CHOLECALCIFEROL (VIT D3) 1,000 UNITS TABLET PO SCH (09:09)
[2017-02-24] MEDS: INSULIN ASPART 100 UNITS/ML SQ PRN ×3 (11:16→20:13)
[2017-02-24 11:52] LABS: GLUCOSE,POINT OF CARE 180 MG/DL (70-110)
[2017-02-24 16:10] VITALS: BP 111/66
[2017-02-24 17:52] LABS: GLUCOSE,POINT OF CARE 149 MG/DL (70-110)
[2017-02-24] MEDS: SIMVASTATIN 40 MG TABLET PO SCH (20:11)
[2017-02-24] MEDS: MIRTAZAPINE 30 MG TABLET PO SCH (20:11)
[2017-02-24] MEDS: TraZODone HCL 100 MG TABLET PO SCH (20:11)
[2017-02-24 21:07] LABS: GLUCOSE,POINT OF CARE 169 MG/DL (70-110)
[2017-02-25 04:27] VITALS: BP 110/70
[2017-02-25] MEDS: IBUPROFEN 600 MG TABLET PO PRN (04:27)
[2017-02-25 06:14] LABS: GLUCOSE,POINT OF CARE 198 MG/DL (70-110)
[2017-02-25] MEDS: GlipiZIDE 10 MG TABLET PO SCH ×2 (06:53→16:32)
[2017-02-25] MEDS: MetFORMIN HCL 500 MG TABLET PO SCH (06:53)
[2017-02-25 08:48] VITALS: BP 121/69
[2017-02-25] MEDS: LISINOPRIL 20 MG TABLET PO SCH (09:00)
[2017-02-25] MEDS: CHOLECALCIFEROL (VIT D3) 1,000 UNITS TABLET PO SCH (09:00)
[2017-02-25] MEDS: OLANZapine 10 MG TABLET PO SCH ×2 (09:00→20:37)
[2017-02-25] MEDS: GABAPENTIN 300 MG CAPSULE PO SCH ×3 (09:00→16:32)
[2017-02-25] MEDS: NICOTINE 21 MG/24 HOUR PATCH TD SCH (09:00)
[2017-02-25] MEDS: MULTIVITAMINS WITH IRON TABLET PO SCH (09:00)
[2017-02-25] MEDS: OMEGA-3/DHA/EPA/FISH OIL 1,000 MG CAPSULE PO SCH (09:00)
[2017-02-25] MEDS: METOPROLOL TARTRATE 25 MG TABLET PO SCH ×2 (09:00→16:32)
[2017-02-25] MEDS: INSULIN ASPART 100 UNITS/ML SQ PRN ×3 (11:25→21:11)
[2017-02-25 11:27] LABS: GLUCOSE,POINT OF CARE 155 MG/DL (70-110)
[2017-02-25] MEDS ORDERED: LORazepam 2 MG/ML VIAL IM ONE (12:45)
[2017-02-25] MEDS ORDERED: DiphenhydrAMINE HCL 50 MG/ML VIAL IM ONE (12:45)
[2017-02-25] MEDS ORDERED: HALOPERIDOL LACTATE 5 MG/ML VIAL IM ONE (12:45)
[2017-02-25] MEDS ORDERED: LORazepam 2 MG/ML VIAL ONE (12:50)
[2017-02-25] MEDS ORDERED: DiphenhydrAMINE HCL 50 MG/ML VIAL ONE (12:50)
[2017-02-25] MEDS ORDERED: HALOPERIDOL LACTATE 5 MG/ML VIAL ONE (12:51)
[2017-02-25 14:58] VITALS: BP 124/78
[2017-02-25] MEDS: LORazepam 2 MG TABLET PO PRN (15:43)
[2017-02-25 16:19] VITALS: BP 132/82
[2017-02-25 16:37] LABS: GLUCOSE,POINT OF CARE 167 MG/DL (70-110)
[2017-02-25] MEDS: QUEtiapine FUMARATE 300 MG TABLET PO SCH (17:05)
[2017-02-25] MEDS: QUEtiapine FUMARATE 100 MG TABLET PO SCH (20:36)
[2017-02-25] MEDS: MIRTAZAPINE 30 MG TABLET PO SCH (20:36)
[2017-02-25] MEDS: SIMVASTATIN 40 MG TABLET PO SCH (20:36)
[2017-02-25] MEDS: TraZODone HCL 100 MG TABLET PO SCH (20:36)
[2017-02-25 20:37] LABS: GLUCOSE,POINT OF CARE 183 MG/DL (70-110)
[2017-02-26 06:13] LABS: GLUCOSE,POINT OF CARE 180 MG/DL (70-110)
[2017-02-26] MEDS: MetFORMIN HCL 500 MG TABLET PO SCH (06:54)
[2017-02-26] MEDS: GlipiZIDE 10 MG TABLET PO SCH ×2 (06:54→16:36)
[2017-02-26 08:00] VITALS: BP 122/69
[2017-02-26] MEDS: NICOTINE 21 MG/24 HOUR PATCH TD SCH (09:00)
[2017-02-26] MEDS: MULTIVITAMINS WITH IRON TABLET PO SCH (09:55)
[2017-02-26] MEDS: LISINOPRIL 20 MG TABLET PO SCH (09:55)
[2017-02-26] MEDS: GABAPENTIN 300 MG CAPSULE PO SCH ×3 (09:55→17:17)
[2017-02-26] MEDS: METOPROLOL TARTRATE 25 MG TABLET PO SCH ×2 (09:55→17:17)
[2017-02-26] MEDS: CHOLECALCIFEROL (VIT D3) 1,000 UNITS TABLET PO SCH (09:55)
[2017-02-26] MEDS: OMEGA-3/DHA/EPA/FISH OIL 1,000 MG CAPSULE PO SCH (09:55)
[2017-02-26] MEDS: QUEtiapine FUMARATE 300 MG TABLET PO SCH ×2 (09:55→17:17)
[2017-02-26] MEDS: OLANZapine 10 MG TABLET PO SCH ×2 (09:55→20:33)
[2017-02-26] MEDS: INSULIN ASPART 100 UNITS/ML SQ PRN ×2 (11:06→17:18)
[2017-02-26 11:12] LABS: GLUCOSE,POINT OF CARE 227 MG/DL (70-110)
[2017-02-26 16:08] VITALS: BP 102/60
[2017-02-26 16:23] LABS: GLUCOSE,POINT OF CARE 186 MG/DL (70-110)
[2017-02-26 17:14] VITALS: BP 117/75
[2017-02-26 19:29] VITALS: BP 112/75
[2017-02-26] MEDS: LORazepam 2 MG TABLET PO PRN (19:31)
[2017-02-26] MEDS: IBUPROFEN 600 MG TABLET PO PRN (19:31)
[2017-02-26 20:32] LABS: GLUCOSE,POINT OF CARE 257 MG/DL (70-110)
[2017-02-26] MEDS: MIRTAZAPINE 30 MG TABLET PO SCH (20:33)
[2017-02-26] MEDS: SIMVASTATIN 40 MG TABLET PO SCH (20:33)
[2017-02-26] MEDS: TraZODone HCL 100 MG TABLET PO SCH (20:33)
[2017-02-26] MEDS: QUEtiapine FUMARATE 100 MG TABLET PO SCH (20:33)
[2017-02-27] MEDS: GlipiZIDE 10 MG TABLET PO SCH ×2 (06:25→16:37)
[2017-02-27 06:49] LABS: GLUCOSE,POINT OF CARE 145 MG/DL (70-110)
[2017-02-27] MEDS: IBUPROFEN 600 MG TABLET PO PRN ×2 (06:58→16:18)
[2017-02-27] MEDS: MetFORMIN HCL 500 MG TABLET PO SCH (07:03)
[2017-02-27 08:45] VITALS: BP 121/83
[2017-02-27] MEDS: MULTIVITAMINS WITH IRON TABLET PO SCH (08:47)
[2017-02-27] MEDS: QUEtiapine FUMARATE 300 MG TABLET PO SCH ×2 (08:47→17:17)
[2017-02-27] MEDS: OLANZapine 10 MG TABLET PO SCH ×2 (08:47→20:36)
[2017-02-27] MEDS: LISINOPRIL 20 MG TABLET PO SCH (08:47)
[2017-02-27] MEDS: CHOLECALCIFEROL (VIT D3) 1,000 UNITS TABLET PO SCH (08:47)
[2017-02-27] MEDS: GABAPENTIN 300 MG CAPSULE PO SCH ×3 (08:48→16:37)
[2017-02-27] MEDS: METOPROLOL TARTRATE 25 MG TABLET PO SCH ×2 (08:48→17:17)
[2017-02-27] MEDS: OMEGA-3/DHA/EPA/FISH OIL 1,000 MG CAPSULE PO SCH (08:48)
[2017-02-27] MEDS: NICOTINE 21 MG/24 HOUR PATCH TD SCH (08:54)
[2017-02-27 11:03] VITALS: BP 114/80
[2017-02-27] MEDS: INSULIN ASPART 100 UNITS/ML SQ PRN ×2 (11:05→20:39)
[2017-02-27 11:12] LABS: GLUCOSE,POINT OF CARE 251 MG/DL (70-110)
[2017-02-27 16:16] VITALS: BP 109/67
[2017-02-27 16:48] LABS: GLUCOSE,POINT OF CARE 117 MG/DL (70-110)
[2017-02-27 17:17] VITALS: BP 122/80
[2017-02-27 20:17] LABS: GLUCOSE,POINT OF CARE 302 MG/DL (70-110)
[2017-02-27] MEDS: SIMVASTATIN 40 MG TABLET PO SCH (20:35)
[2017-02-27] MEDS: QUEtiapine FUMARATE 100 MG TABLET PO SCH (20:35)
[2017-02-27] MEDS: TraZODone HCL 100 MG TABLET PO SCH (20:36)
[2017-02-27] MEDS: MIRTAZAPINE 30 MG TABLET PO SCH (20:36)
[2017-02-28 00:30] VITALS: BP 112/70
[2017-02-28] MEDS: IBUPROFEN 600 MG TABLET PO PRN ×2 (03:24→09:27)
[2017-02-28] MEDS: LORazepam 2 MG TABLET PO PRN (03:24)
[2017-02-28 06:27] LABS: GLUCOSE,POINT OF CARE 222 MG/DL (70-110)
[2017-02-28] MEDS: MetFORMIN HCL 500 MG TABLET PO SCH (06:45)
[2017-02-28] MEDS: GlipiZIDE 10 MG TABLET PO SCH (06:45)
[2017-02-28] MEDS: INSULIN ASPART 100 UNITS/ML SQ PRN (07:10)
[2017-02-28 08:14] VITALS: BP 115/60
[2017-02-28] MEDS: QUEtiapine FUMARATE 300 MG TABLET PO SCH (08:43)
[2017-02-28] MEDS: OLANZapine 10 MG TABLET PO SCH (08:43)
[2017-02-28] MEDS: METOPROLOL TARTRATE 25 MG TABLET PO SCH (08:43)
[2017-02-28] MEDS: MULTIVITAMINS WITH IRON TABLET PO SCH (08:43)
[2017-02-28] MEDS: OMEGA-3/DHA/EPA/FISH OIL 1,000 MG CAPSULE PO SCH (08:43)
[2017-02-28] MEDS: CHOLECALCIFEROL (VIT D3) 1,000 UNITS TABLET PO SCH (08:43)
[2017-02-28] MEDS: LISINOPRIL 20 MG TABLET PO SCH (08:43)
[2017-02-28] MEDS: GABAPENTIN 300 MG CAPSULE PO SCH (08:43)
[2017-02-28] MEDS: NICOTINE 21 MG/24 HOUR PATCH TD SCH (08:44)
[2017-02-28] MEDS ORDERED: MVITFE PO (10:43)
[2017-02-28] MEDS ORDERED: QUET100T PO (10:43)
[2017-02-28] MEDS ORDERED: OMEG-135 PO (10:43)
[2017-02-28] MEDS ORDERED: TRAZ-147 PO (10:43)
[2017-02-28] MEDS ORDERED: QUET300T2 PO (10:43)
[2017-02-28] MEDS ORDERED: OLAN10TA3 PO (10:43)
== END 2017-02-28 11:44 | disposition home or self-care (01) | DRG 885 ==
LOC: EMS 19:49 → B2X 20:30
DX: F25.1 Schizoaffective disorder, depressive type (principal); I11.0 Hypertensive heart disease with heart failure; E11.65 Type 2 diabetes mellitus with hyperglycemia; I50.9 Heart failure, unspecified; R45.851 Suicidal ideations; F19.20 Other psychoactive substance dependence, uncomplicated; E55.9 Vitamin D deficiency, unspecified; E66.9 Obesity, unspecified; E78.1 Pure hyperglyceridemia; E87.6 Hypokalemia; F10.20 Alcohol dependence, uncomplicated; F17.200 Nicotine dependence, unspecified, uncomplicated; F41.9 Anxiety disorder, unspecified; G47.00 Insomnia, unspecified; J44.9 Chronic obstructive pulmonary disease, unspecified; R45.850 Homicidal ideations; Z79.899 Other long term (current) drug therapy; Z71.6 Tobacco abuse counseling; Z71.41 Alcohol abuse counseling and surveillance of alcoholic; Z68.35 Body mass index [BMI] 35.0-35.9, adult
CPT/HCPCS: 82962; 84132; 84443; 96372; 99285; G0480; J1200; J1630; J2060

== ENCOUNTER 2017-06-17 13:22 | Inpatient (IN) | payer MEDICARE, MEDICAID ==
[~2017-06-17] VITALS: Ht 180.3 cm; Wt 104.0 kg
[~2017-06-17 13:22] MED LIST changes: -DILT-39 PO; +GABA-318 PO; +GLIP10TA9 PO; -GLIP2.5ER PO; +LISI-618 PO; +MIRT30TA6 PO; +MVITFE PO; +OLAN10TA20 PO; +OLAN10TA3 PO; +OMEG-135 PO; +QUET100T PO; -QUET200T PO; +QUET300T2 PO; +SIMV40TA5 PO; +TRAZ-147 PO
[2017-06-17 16:06] VITALS: BP 112/59
[2017-06-17] MEDS ORDERED: ZOLPIDEM TARTRATE 10 MG TABLET PO PRN (16:15)
[2017-06-17 17:28] VITALS: BP 128/77
[2017-06-17] MEDS ORDERED: ALBUTEROL SULFATE HFA 90 MCG/PUFF 8 GM INHALER IH PRN (18:00)
[2017-06-17] MEDS ORDERED: GLUCAGON,HUMAN RECOMBINANT 1 MG VIAL IM PRN (18:00)
[2017-06-18] MEDS: LORazepam 2 MG TABLET PO PRN ×2 (07:00→17:43)
[2017-06-18] MEDS: OLANZapine 10 MG TABLET PO SCH ×2 (12:37→20:48)
[2017-06-18] MEDS: QUEtiapine FUMARATE 300 MG TABLET PO SCH ×2 (12:37→16:41)
[2017-06-18] MEDS: MIRTAZAPINE 30 MG TABLET PO SCH (12:38)
[2017-06-18 14:22] LABS: GLUCOMETER DEV NAME(LOC) BV3S 2; GLUCOSE,POINT OF CARE 203 MG/DL (70-110)
[2017-06-18 16:29] VITALS: BP 116/68
[2017-06-18] MEDS: HALOPERIDOL 5 MG TABLET PO PRN (16:41)
[2017-06-18 17:08] LABS: GLUCOMETER DEV NAME(LOC) BV3S 2; GLUCOSE,POINT OF CARE 115 MG/DL (70-110)
[2017-06-18] MEDS: QUEtiapine FUMARATE 100 MG TABLET PO SCH (20:48)
[2017-06-18 20:53] LABS: GLUCOMETER DEV NAME(LOC) BV3S 2; GLUCOSE,POINT OF CARE 201 MG/DL (70-110)
[2017-06-18] MEDS: INSULIN LISPRO 100 UNITS/ML SQ PRN (21:10)
[2017-06-19] MEDS: MetFORMIN HCL 500 MG TABLET PO SCH (06:33)
[2017-06-19 06:38] LABS: GLUCOMETER DEV NAME(LOC) BV3S 2; GLUCOSE,POINT OF CARE 124 MG/DL (70-110)
[2017-06-19 08:30] VITALS: BP 124/80
[2017-06-19] MEDS: MIRTAZAPINE 30 MG TABLET PO SCH (09:34)
[2017-06-19] MEDS: LORazepam 2 MG TABLET PO PRN ×2 (09:34→18:56)
[2017-06-19] MEDS: QUEtiapine FUMARATE 300 MG TABLET PO SCH ×2 (09:34→16:49)
[2017-06-19] MEDS: SIMVASTATIN 40 MG TABLET PO SCH (09:34)
[2017-06-19] MEDS: CHOLECALCIFEROL (VIT D3) 1,000 UNITS TABLET PO SCH (09:34)
[2017-06-19] MEDS: OLANZapine 10 MG TABLET PO SCH ×2 (09:38→20:12)
[2017-06-19 09:45] LABS: BASOPHILS % (AUTO) 1.1 % (0.0-2.0); EOSINOPHILS % (AUTO) 3.5 % (1.0-6.0); HEMATOCRIT 31.7 % (36-46); HEMOGLOBIN 11.2 g/dL (12.0-16.0); LYMPHOCYTES # (AUTO) 1.9 K/uL (1.0-4.8); LYMPHOCYTES % (AUTO) 29.6 % (22.0-44.0); MEAN CORPUSCULAR HEMOGLOBIN 32.3 pg (26.0-34.0); MEAN CORPUSCULAR HGB CONC 35.4 G/dL (31.0-37.0); MEAN CORPUSCULAR VOLUME 91 fL (80-100); MONOCYTES # (AUTO) 0.3 K/uL (0.1-1.0); MONOCYTES % (AUTO) 5.2 % (2.0-9.0); NEUTROPHILS # (AUTO) 3.8 K/uL (1.8-7.7); NEUTROPHILS % (AUTO) 60.6 % (40.0-70.0); PLATELET COUNT (AUTO) 220 K/uL (150-450); RED BLOOD CELL COUNT(AUTO) 3.47 MIL/uL (4.00-5.20); RED CELL DISTRIBUTION WIDTH 16.8 % (11.5-14.5)
[2017-06-19] MEDS: HALOPERIDOL 5 MG TABLET PO PRN ×2 (09:48→16:49)
[2017-06-19 09:59] LABS: HEMOGLOBIN A1C 5.8 % (4.5-6.2)
[2017-06-19 10:16] LABS: ALANINE AMINOTRANSFERASE 21 U/L (12-78); ALBUMIN 3.1 g/dL (3.4-5.0); ALKALINE PHOSPHATASE 83 U/L (46-116); ANION GAP 9 mmol/L (8-16); ASPARTATE AMINOTRANSFERASE 26 U/L (15-37); BILIRUBIN,TOTAL 0.6 mg/dL (0.1-1.0); CALCIUM, TOTAL 8.7 mg/dL (8.8-10.5); CARBON DIOXIDE 27 mmol/L (22-29); CHLORIDE 105 mmol/L (98-107); CHOL/HDL RATIO 3.6 (3.9-5.7); CHOLESTEROL 153 mg/dL (131-200); CREATININE 0.74 mg/dL (0.60-1.30); FREE T4 (FREE THYROXINE) 0.85 ng/dL (0.76-1.46); GLOMERULAR FILTR. RATE CALC > 60 mL/min (>60); GLUCOSE,RANDOM 119 mg/dL (70-110); HCG,QUANTITATIVE < 1 mIU/mL (0-6); HDL CHOLESTEROL 43 mg/dL (40-60); LDL CHOL (CALC.) 92 mg/dL (0-130); POTASSIUM 3.4 mmol/L (3.5-5.1); SODIUM SERUM 141 mmol/L (136-145); TOTAL PROTEIN, SERUM 6.9 g/dL (6.4-8.2); TRIGLYCERIDES 90 mg/dL (15-150); UREA NITROGEN, BLOOD 9 mg/dL (7-18)
[2017-06-19] MEDS ORDERED: POTASSIUM CHLORIDE 20 MEQ ER TABLET PO ONE (11:30)
[2017-06-19 11:53] LABS: GLUCOMETER DEV NAME(LOC) BV3S 2; GLUCOSE,POINT OF CARE 118 MG/DL (70-110)
[2017-06-19] MEDS: INSULIN LISPRO 100 UNITS/ML SQ PRN (17:30)
[2017-06-19 17:49] VITALS: BP 137/90
[2017-06-19] MEDS: QUEtiapine FUMARATE 100 MG TABLET PO SCH (20:12)
[2017-06-19 20:38] LABS: GLUCOMETER DEV NAME(LOC) BV3S 2; GLUCOSE,POINT OF CARE 112 MG/DL (70-110)
[2017-06-19 20:38] LABS: GLUCOMETER DEV NAME(LOC) BV3S 2; GLUCOSE,POINT OF CARE 158 MG/DL (70-110)
[2017-06-20 06:28] LABS: GLUCOMETER DEV NAME(LOC) BV3S 2; GLUCOSE,POINT OF CARE 148 MG/DL (70-110)
[2017-06-20] MEDS: MetFORMIN HCL 500 MG TABLET PO SCH (06:54)
[2017-06-20 07:00] VITALS: BP 128/76
[2017-06-20 08:00] VITALS: BP 130/88
[2017-06-20] MEDS: SIMVASTATIN 40 MG TABLET PO SCH (09:44)
[2017-06-20] MEDS: OLANZapine 10 MG TABLET PO SCH ×2 (09:44→20:32)
[2017-06-20] MEDS: QUEtiapine FUMARATE 300 MG TABLET PO SCH ×2 (09:44→16:31)
[2017-06-20] MEDS: MIRTAZAPINE 30 MG TABLET PO SCH (09:44)
[2017-06-20] MEDS: CHOLECALCIFEROL (VIT D3) 1,000 UNITS TABLET PO SCH (09:44)
[2017-06-20] MEDS: LORazepam 2 MG TABLET PO PRN ×2 (11:57→17:58)
[2017-06-20] MEDS ORDERED: IBUPROFEN 600 MG TABLET PO PRN (12:00)
[2017-06-20] MEDS ORDERED: ACETAMINOPHEN 325 MG TABLET PO PRN (12:00)
[2017-06-20 12:52] LABS: GLUCOMETER DEV NAME(LOC) BV3S 2; GLUCOSE,POINT OF CARE 124 MG/DL (70-110)
[2017-06-20 16:18] VITALS: BP 140/92
[2017-06-20] MEDS: HALOPERIDOL 5 MG TABLET PO PRN (16:31)
[2017-06-20] MEDS: QUEtiapine FUMARATE 100 MG TABLET PO SCH (20:31)
[2017-06-20] MEDS ORDERED: BISMUTH SUBSALICYLATE 262 MG CHEWABLE TABLET CHEW PRN (22:00)
[2017-06-20] MEDS: PANTOPRAZOLE SODIUM 40 MG DR TABLET PO SCH (22:15)
[2017-06-21] MEDS: MetFORMIN HCL 500 MG TABLET PO SCH (06:14)
[2017-06-21 06:52] VITALS: BP 136/86
[2017-06-21] MEDS: LORazepam 2 MG TABLET PO PRN (07:13)
[2017-06-21] MEDS: HALOPERIDOL 5 MG TABLET PO PRN (07:13)
[2017-06-21] MEDS ORDERED: BENZOCAINE/MENTHOL LOZENGE PO PRN (08:30)
[2017-06-21] MEDS ORDERED: AZITHROMYCIN 250 MG TABLET PO ONE (08:30)
[2017-06-21 08:56] VITALS: BP 124/87
[2017-06-21] MEDS ORDERED: AZIT200S PO (09:00)
[2017-06-21] MEDS ORDERED: AZITHROMYCIN 250 MG TABLET PO SCH (09:00)
[2017-06-21 09:11] LABS: ANION GAP 8 mmol/L (8-16); CALCIUM, TOTAL 9.3 mg/dL (8.8-10.5); CARBON DIOXIDE 28 mmol/L (22-29); CHLORIDE 102 mmol/L (98-107); CREATINE KINASE, TOTAL 43 U/L (26-192); CREATININE 0.93 mg/dL (0.60-1.30); GLOMERULAR FILTR. RATE CALC > 60 mL/min (>60); GLUCOSE,RANDOM 127 mg/dL (70-110); POTASSIUM 4.1 mmol/L (3.5-5.1); SODIUM SERUM 138 mmol/L (136-145); UREA NITROGEN, BLOOD 12 mg/dL (7-18)
[2017-06-21] MEDS: MIRTAZAPINE 30 MG TABLET PO SCH (09:43)
[2017-06-21] MEDS: QUEtiapine FUMARATE 300 MG TABLET PO SCH (09:43)
[2017-06-21] MEDS: OLANZapine 10 MG TABLET PO SCH (09:44)
[2017-06-21] MEDS: PANTOPRAZOLE SODIUM 40 MG DR TABLET PO SCH (09:44)
[2017-06-21] MEDS: SIMVASTATIN 40 MG TABLET PO SCH (09:44)
[2017-06-21] MEDS: CHOLECALCIFEROL (VIT D3) 1,000 UNITS TABLET PO SCH (09:44)
== END 2017-06-21 15:31 | disposition home or self-care (01) | DRG 885 ==
LOC: B3A 16:33
PROVIDERS: ADMIT Psychiatry & Neurology Child & Adolescent Psychiatry; ATTEND Psychiatry & Neurology Child & Adolescent Psychiatry
DX: F20.0 Paranoid schizophrenia (principal); E46 Unspecified protein-calorie malnutrition; E11.9 Type 2 diabetes mellitus without complications; D53.9 Nutritional anemia, unspecified; E55.9 Vitamin D deficiency, unspecified; E78.5 Hyperlipidemia, unspecified; E87.6 Hypokalemia; F15.90 Other stimulant use, unspecified, uncomplicated; I10 Essential (primary) hypertension; J44.9 Chronic obstructive pulmonary disease, unspecified; K21.9 Gastro-esophageal reflux disease without esophagitis; F14.10 Cocaine abuse, uncomplicated; F41.9 Anxiety disorder, unspecified; J02.9 Acute pharyngitis, unspecified; Z79.4 Long term (current) use of insulin; Z79.899 Other long term (current) drug therapy; Z88.2 Allergy status to sulfonamides; Z88.1 Allergy status to other antibiotic agents; Z68.32 Body mass index [BMI] 32.0-32.9, adult
CPT/HCPCS: 82962; 83036; 83735; 84436; 84439

== ENCOUNTER 2017-06-30 02:25 | Emergency (ER) | payer MEDICARE, OTHER ==
[~2017-06-30] VITALS: Ht 175.3 cm; Wt 90.9 kg
[~2017-06-30 02:25] MED LIST changes: +AZIT200S PO; -GABA-318 PO; -GLIP10TA9 PO; -LISI-618 PO; -METO25 PO; -MVITFE PO; -OLAN10TA20 PO; -OMEG-135 PO; -TRAZ-147 PO
[2017-06-30 02:43] LABS: GLUCOSE,POINT OF CARE 219 MG/DL (70-110)
[2017-06-30 05:03] VITALS: BP 119/78
== END 2017-06-30 05:04 | disposition home or self-care (01) ==
LOC: EMS 02:26
DX: R42 Dizziness and giddiness (principal); E11.65 Type 2 diabetes mellitus with hyperglycemia; F20.9 Schizophrenia, unspecified; F17.210 Nicotine dependence, cigarettes, uncomplicated; I11.0 Hypertensive heart disease with heart failure; I50.9 Heart failure, unspecified; Z59.0 Homelessness; Z88.2 Allergy status to sulfonamides; Z79.899 Other long term (current) drug therapy
CPT/HCPCS: 82962; 99283; 99406

== ENCOUNTER 2017-07-01 17:35 | Inpatient (IN) | payer MEDICARE, MEDICAID ==
[~2017-07-01] VITALS: Ht 175.3 cm; Wt 102.1 kg
[~2017-07-01 17:35] MED LIST changes: -AZIT200S PO
[2017-07-01 18:35] VITALS: BP 142/87
[2017-07-01] MEDS: LORazepam 2 MG TABLET PO PRN (19:12)
[2017-07-01] MEDS ORDERED: PNEUMOCOCCAL VACCINE POLYVALENT 0.5 ML VIAL [PPSV23] IM ONE (19:15)
[2017-07-01] MEDS ORDERED: INFLUENZA VIRUS VACCINE QVS 2017-18 (3YR+)/PF 60 MCG/0.5 ML SYRINGE IM ONE (19:15)
[2017-07-01 20:12] VITALS: BP 138/85
[2017-07-01] MEDS: ZOLPIDEM TARTRATE 10 MG TABLET PO PRN (20:23)
[2017-07-01] MEDS ORDERED: GLUCAGON,HUMAN RECOMBINANT 1 MG VIAL IM PRN (20:30)
[2017-07-01] MEDS ORDERED: INSULIN LISPRO 100 UNITS/ML SQ PRN (20:30)
[2017-07-02] MEDS: MetFORMIN HCL 500 MG TABLET PO SCH (06:32)
[2017-07-02 06:34] LABS: GLUCOMETER DEV NAME(LOC) BV3S 2; GLUCOSE,POINT OF CARE 149 MG/DL (70-110)
[2017-07-02] MEDS: INSULIN LISPRO 100 UNITS/ML SQ PRN ×2 (06:51→18:01)
[2017-07-02 07:26] VITALS: BP 139/82
[2017-07-02] MEDS: CHOLECALCIFEROL (VIT D3) 1,000 UNITS TABLET PO SCH (08:06)
[2017-07-02] MEDS: SIMVASTATIN 40 MG TABLET PO SCH (08:06)
[2017-07-02 08:30] VITALS: BP 142/90
[2017-07-02 08:30] LABS: EOSINOPHILS % (AUTO) 2.9 % (1.0-6.0); HEMATOCRIT 33.9 % (36-46); HEMOGLOBIN 12.1 g/dL (12.0-16.0); LYMPHOCYTES # (AUTO) 1.9 K/uL (1.0-4.8); MEAN CORPUSCULAR HEMOGLOBIN 32.4 pg (26.0-34.0); MEAN CORPUSCULAR HGB CONC 35.6 G/dL (31.0-37.0); MEAN CORPUSCULAR VOLUME 91 fL (80-100); MONOCYTES # (AUTO) 0.4 K/uL (0.1-1.0); NEUTROPHILS # (AUTO) 4.5 K/uL (1.8-7.7); NEUTROPHILS % (AUTO) 64.1 % (40.0-70.0); PLATELET COUNT (AUTO) 292 K/uL (150-450); RED BLOOD CELL COUNT(AUTO) 3.71 MIL/uL (4.00-5.20); RED CELL DISTRIBUTION WIDTH 16.2 % (11.5-14.5)
[2017-07-02 09:18] LABS: ALANINE AMINOTRANSFERASE 29 U/L (12-78); ALKALINE PHOSPHATASE 91 U/L (46-116); ANION GAP 7 mmol/L (8-16); ASPARTATE AMINOTRANSFERASE 24 U/L (15-37); BILIRUBIN,TOTAL 0.8 mg/dL (0.1-1.0); CARBON DIOXIDE 26 mmol/L (22-29); CHLORIDE 103 mmol/L (98-107); CHOL/HDL RATIO 3.4 (3.9-5.7); CHOLESTEROL 117 mg/dL (131-200); CREATININE 0.72 mg/dL (0.60-1.30); FREE T4 (FREE THYROXINE) 0.77 ng/dL (0.76-1.46); GLOMERULAR FILTR. RATE CALC > 60 mL/min (>60); GLUCOSE,RANDOM 145 mg/dL (70-110); HCG,QUANTITATIVE < 1 mIU/mL (0-6); HDL CHOLESTEROL 34 mg/dL (40-60); LDL CHOL (CALC.) 56 mg/dL (0-130); POTASSIUM 3.2 mmol/L (3.5-5.1); SODIUM SERUM 136 mmol/L (136-145); THYROID STIMULATING HORMONE 0.52 uIU/mL (0.36-3.74); TOTAL PROTEIN, SERUM 6.5 g/dL (6.4-8.2); TRIGLYCERIDES 134 mg/dL (15-150)
[2017-07-02 09:26] LABS: UREA NITROGEN, BLOOD 3 mg/dL (7-18)
[2017-07-02] MEDS: LORazepam 2 MG TABLET PO PRN ×2 (10:12→17:55)
[2017-07-02] MEDS ORDERED: POTASSIUM CHLORIDE 20 MEQ ER TABLET PO ONE (10:30)
[2017-07-02] MEDS: MAGNESIUM OXIDE 400 MG TABLET PO SCH (11:42)
[2017-07-02] MEDS: LISINOPRIL 5 MG TABLET PO SCH (11:42)
[2017-07-02] MEDS: MIRTAZAPINE 30 MG TABLET PO SCH (11:42)
[2017-07-02 12:08] LABS: GLUCOMETER DEV NAME(LOC) BV3S 2; GLUCOSE,POINT OF CARE 173 MG/DL (70-110)
[2017-07-02] MEDS ORDERED: BISMUTH SUBSALICYLATE 524 MG/30 ML SUSPENSION UDCUP PO PRN (13:00)
[2017-07-02] MEDS: PANTOPRAZOLE SODIUM 40 MG DR TABLET PO SCH (13:08)
[2017-07-02 16:04] VITALS: BP 132/89
[2017-07-02] MEDS: QUEtiapine FUMARATE 300 MG TABLET PO SCH (16:29)
[2017-07-02 17:23] LABS: GLUCOMETER DEV NAME(LOC) BV3S 2; GLUCOSE,POINT OF CARE 159 MG/DL (70-110)
[2017-07-02] MEDS: OLANZapine 10 MG TABLET PO SCH (21:08)
[2017-07-03 01:04] VITALS: BP 138/83
[2017-07-03 06:18] LABS: GLUCOMETER DEV NAME(LOC) BV3S 2; GLUCOSE,POINT OF CARE 185 MG/DL (70-110)
[2017-07-03] MEDS: INSULIN LISPRO 100 UNITS/ML SQ PRN ×2 (06:26→19:58)
[2017-07-03] MEDS: MetFORMIN HCL 500 MG TABLET PO SCH (06:26)
[2017-07-03] MEDS: PANTOPRAZOLE SODIUM 40 MG DR TABLET PO SCH (08:14)
[2017-07-03] MEDS: CHOLECALCIFEROL (VIT D3) 1,000 UNITS TABLET PO SCH (08:14)
[2017-07-03] MEDS: MIRTAZAPINE 30 MG TABLET PO SCH (08:14)
[2017-07-03] MEDS: OLANZapine 10 MG TABLET PO SCH ×2 (08:14→20:27)
[2017-07-03] MEDS: MAGNESIUM OXIDE 400 MG TABLET PO SCH (08:14)
[2017-07-03] MEDS: QUEtiapine FUMARATE 300 MG TABLET PO SCH ×2 (08:14→16:22)
[2017-07-03] MEDS: LISINOPRIL 5 MG TABLET PO SCH (08:14)
[2017-07-03] MEDS: SIMVASTATIN 40 MG TABLET PO SCH (08:15)
[2017-07-03] MEDS: LORazepam 2 MG TABLET PO PRN ×2 (08:16→17:11)
[2017-07-03 08:23] VITALS: BP 137/85
[2017-07-03 16:26] VITALS: BP 138/79
[2017-07-03 17:18] LABS: GLUCOMETER DEV NAME(LOC) BV3S 2; GLUCOSE,POINT OF CARE 143 MG/DL (70-110)
[2017-07-03] MEDS: MUPIROCIN CALCIUM 2% 22 GM OINTMENT NASAL SCH (21:32)
[2017-07-04] MEDS: MetFORMIN HCL 500 MG TABLET PO SCH (06:32)
[2017-07-04] MEDS: LORazepam 2 MG TABLET PO PRN ×3 (07:04→16:30)
[2017-07-04 07:17] LABS: GLUCOMETER DEV NAME(LOC) BV3S 2; GLUCOSE,POINT OF CARE 140 MG/DL (70-110)
[2017-07-04] MEDS: MIRTAZAPINE 30 MG TABLET PO SCH (08:26)
[2017-07-04] MEDS: CHOLECALCIFEROL (VIT D3) 1,000 UNITS TABLET PO SCH (08:26)
[2017-07-04] MEDS: SIMVASTATIN 40 MG TABLET PO SCH (08:26)
[2017-07-04] MEDS: MUPIROCIN CALCIUM 2% 22 GM OINTMENT NASAL SCH ×2 (08:27→16:30)
[2017-07-04] MEDS: OLANZapine 10 MG TABLET PO SCH ×2 (08:27→20:01)
[2017-07-04] MEDS: PANTOPRAZOLE SODIUM 40 MG DR TABLET PO SCH (08:27)
[2017-07-04] MEDS: QUEtiapine FUMARATE 300 MG TABLET PO SCH ×2 (08:27→16:30)
[2017-07-04] MEDS: LISINOPRIL 5 MG TABLET PO SCH (08:27)
[2017-07-04] MEDS: MAGNESIUM OXIDE 400 MG TABLET PO SCH (08:27)
[2017-07-04 08:32] LABS: ANION GAP 9 mmol/L (8-16); CALCIUM, TOTAL 8.6 mg/dL (8.8-10.5); CARBON DIOXIDE 26 mmol/L (22-29); CHLORIDE 105 mmol/L (98-107); CREATINE KINASE, TOTAL 44 U/L (26-192); CREATININE 0.71 mg/dL (0.60-1.30); GLOMERULAR FILTR. RATE CALC > 60 mL/min (>60); GLUCOSE,RANDOM 122 mg/dL (70-110); POTASSIUM 3.7 mmol/L (3.5-5.1); SODIUM SERUM 140 mmol/L (136-145); UREA NITROGEN, BLOOD 5 mg/dL (7-18)
[2017-07-04 13:18] VITALS: BP 134/95
[2017-07-04 16:06] VITALS: BP 136/88
[2017-07-04 16:43] LABS: GLUCOMETER DEV NAME(LOC) BV3S 2; GLUCOSE,POINT OF CARE 151 MG/DL (70-110)
[2017-07-04] MEDS: INSULIN LISPRO 100 UNITS/ML SQ PRN (17:09)
[2017-07-05] MEDS: LORazepam 2 MG TABLET PO PRN ×4 (04:21→18:54)
[2017-07-05] MEDS: MetFORMIN HCL 500 MG TABLET PO SCH (06:27)
[2017-07-05] MEDS: INSULIN LISPRO 100 UNITS/ML SQ PRN (06:28)
[2017-07-05 06:33] LABS: GLUCOMETER DEV NAME(LOC) BV3S 2; GLUCOSE,POINT OF CARE 235 MG/DL (70-110)
[2017-07-05 07:15] VITALS: BP 130/76
[2017-07-05] MEDS: LISINOPRIL 5 MG TABLET PO SCH (08:54)
[2017-07-05] MEDS: MUPIROCIN CALCIUM 2% 22 GM OINTMENT NASAL SCH ×2 (08:54→16:53)
[2017-07-05] MEDS: QUEtiapine FUMARATE 300 MG TABLET PO SCH ×2 (08:54→16:52)
[2017-07-05] MEDS: MIRTAZAPINE 30 MG TABLET PO SCH (08:55)
[2017-07-05] MEDS: MAGNESIUM OXIDE 400 MG TABLET PO SCH (08:55)
[2017-07-05] MEDS: CHOLECALCIFEROL (VIT D3) 1,000 UNITS TABLET PO SCH (08:55)
[2017-07-05] MEDS: PANTOPRAZOLE SODIUM 40 MG DR TABLET PO SCH (08:55)
[2017-07-05] MEDS: OLANZapine 10 MG TABLET PO SCH ×2 (08:55→20:25)
[2017-07-05 09:03] VITALS: BP 148/87
[2017-07-05] MEDS: SIMVASTATIN 40 MG TABLET PO SCH (09:12)
[2017-07-05 16:30] VITALS: BP 143/90
[2017-07-05 16:57] LABS: GLUCOMETER DEV NAME(LOC) BV3S 2; GLUCOSE,POINT OF CARE 173 MG/DL (70-110)
[2017-07-05] MEDS: ZOLPIDEM TARTRATE 10 MG TABLET PO PRN (21:34)
[2017-07-06 05:02] VITALS: BP 131/87
[2017-07-06 06:13] LABS: GLUCOMETER DEV NAME(LOC) BV3S 2; GLUCOSE,POINT OF CARE 154 MG/DL (70-110)
[2017-07-06] MEDS: MetFORMIN HCL 500 MG TABLET PO SCH (06:38)
[2017-07-06] MEDS: INSULIN LISPRO 100 UNITS/ML SQ PRN ×2 (06:40→17:35)
[2017-07-06 08:12] VITALS: BP 105/65
[2017-07-06] MEDS: LISINOPRIL 5 MG TABLET PO SCH (09:15)
[2017-07-06] MEDS: PANTOPRAZOLE SODIUM 40 MG DR TABLET PO SCH (09:15)
[2017-07-06] MEDS: MIRTAZAPINE 30 MG TABLET PO SCH (09:15)
[2017-07-06] MEDS: CHOLECALCIFEROL (VIT D3) 1,000 UNITS TABLET PO SCH (09:15)
[2017-07-06] MEDS: SIMVASTATIN 40 MG TABLET PO SCH (09:15)
[2017-07-06] MEDS: MAGNESIUM OXIDE 400 MG TABLET PO SCH (09:15)
[2017-07-06] MEDS: QUEtiapine FUMARATE 300 MG TABLET PO SCH ×2 (09:15→17:01)
[2017-07-06] MEDS: OLANZapine 10 MG TABLET PO SCH (09:17)
[2017-07-06] MEDS: MUPIROCIN CALCIUM 2% 22 GM OINTMENT NASAL SCH ×2 (09:22→17:00)
[2017-07-06] MEDS: LORazepam 2 MG TABLET PO PRN ×2 (11:51→17:01)
[2017-07-06] MEDS ORDERED: OLANZapine 10 MG TABLET PO ONE (12:15)
[2017-07-06 16:11] VITALS: BP 124/82
[2017-07-06 17:08] LABS: GLUCOMETER DEV NAME(LOC) BV3S 2; GLUCOSE,POINT OF CARE 212 MG/DL (70-110)
[2017-07-06] MEDS: OLANZapine 7.5 MG TABLET PO SCH (20:18)
[2017-07-06] MEDS: ZOLPIDEM TARTRATE 10 MG TABLET PO PRN (20:28)
[2017-07-07 02:18] VITALS: BP 118/68
[2017-07-07 06:43] LABS: GLUCOMETER DEV NAME(LOC) BV3S 2; GLUCOSE,POINT OF CARE 185 MG/DL (70-110)
[2017-07-07] MEDS: MetFORMIN HCL 500 MG TABLET PO SCH (06:43)
[2017-07-07] MEDS: INSULIN LISPRO 100 UNITS/ML SQ PRN ×2 (06:47→17:44)
[2017-07-07] MEDS: LORazepam 2 MG TABLET PO PRN ×3 (07:27→18:36)
[2017-07-07 08:08] VITALS: BP 118/76
[2017-07-07] MEDS: CHOLECALCIFEROL (VIT D3) 1,000 UNITS TABLET PO SCH (08:28)
[2017-07-07] MEDS: LISINOPRIL 5 MG TABLET PO SCH (08:28)
[2017-07-07] MEDS: MIRTAZAPINE 30 MG TABLET PO SCH (08:28)
[2017-07-07] MEDS: SIMVASTATIN 40 MG TABLET PO SCH (08:28)
[2017-07-07] MEDS: PANTOPRAZOLE SODIUM 40 MG DR TABLET PO SCH (08:28)
[2017-07-07] MEDS: MAGNESIUM OXIDE 400 MG TABLET PO SCH (08:28)
[2017-07-07] MEDS: MUPIROCIN CALCIUM 2% 22 GM OINTMENT NASAL SCH ×2 (08:29→17:10)
[2017-07-07] MEDS: QUEtiapine FUMARATE 300 MG TABLET PO SCH ×2 (08:29→17:10)
[2017-07-07] MEDS: OLANZapine 7.5 MG TABLET PO SCH ×2 (08:30→20:05)
[2017-07-07 16:34] VITALS: BP 129/78
[2017-07-07 17:43] LABS: GLUCOMETER DEV NAME(LOC) BV3S 2; GLUCOSE,POINT OF CARE 192 MG/DL (70-110)
[2017-07-07] MEDS: ZOLPIDEM TARTRATE 10 MG TABLET PO PRN (21:38)
[2017-07-08 00:10] VITALS: BP 121/68
[2017-07-08 06:23] LABS: GLUCOMETER DEV NAME(LOC) BV3S 2; GLUCOSE,POINT OF CARE 255 MG/DL (70-110)
[2017-07-08] MEDS: INSULIN LISPRO 100 UNITS/ML SQ PRN (06:53)
[2017-07-08] MEDS: MetFORMIN HCL 500 MG TABLET PO SCH (06:53)
[2017-07-08] MEDS: SIMVASTATIN 40 MG TABLET PO SCH (08:03)
[2017-07-08] MEDS: MUPIROCIN CALCIUM 2% 22 GM OINTMENT NASAL SCH (08:03)
[2017-07-08] MEDS: PANTOPRAZOLE SODIUM 40 MG DR TABLET PO SCH (08:04)
[2017-07-08] MEDS: QUEtiapine FUMARATE 300 MG TABLET PO SCH (08:04)
[2017-07-08] MEDS: LISINOPRIL 5 MG TABLET PO SCH (08:04)
[2017-07-08] MEDS: OLANZapine 7.5 MG TABLET PO SCH (08:04)
[2017-07-08] MEDS: CHOLECALCIFEROL (VIT D3) 1,000 UNITS TABLET PO SCH (08:04)
[2017-07-08] MEDS: MIRTAZAPINE 30 MG TABLET PO SCH (08:04)
[2017-07-08] MEDS: MAGNESIUM OXIDE 400 MG TABLET PO SCH (08:05)
[2017-07-08 08:17] VITALS: BP 115/66
[2017-07-08] MEDS: LORazepam 2 MG TABLET PO PRN (12:18)
[2017-07-08] MEDS ORDERED: PANT40TA25 PO (12:44)
[2017-07-08] MEDS ORDERED: LISI-660 PO (12:45)
[2017-07-08] MEDS ORDERED: MAGN400T25 PO (12:46)
== END 2017-07-08 13:45 | disposition home or self-care (01) | DRG 885 ==
LOC: B3A 18:13
PROVIDERS: ADMIT Psychiatry & Neurology Child & Adolescent Psychiatry; ATTEND Psychiatry & Neurology Child & Adolescent Psychiatry
DX: F25.0 Schizoaffective disorder, bipolar type (principal); E83.42 Hypomagnesemia; E11.9 Type 2 diabetes mellitus without complications; D64.9 Anemia, unspecified; E78.5 Hyperlipidemia, unspecified; F14.90 Cocaine use, unspecified, uncomplicated; F15.90 Other stimulant use, unspecified, uncomplicated; I10 Essential (primary) hypertension; J44.9 Chronic obstructive pulmonary disease, unspecified; K21.9 Gastro-esophageal reflux disease without esophagitis; K29.70 Gastritis, unspecified, without bleeding; Z22.322 Carrier or suspected carrier of Methicillin resistant Staphylococcus aureus; Z91.14 Patient's other noncompliance with medication regimen; Z88.8 Allergy status to other drugs, medicaments and biological substances
CPT/HCPCS: 82962; 83036; 83735; 84439; 84443; 87081

== ENCOUNTER 2018-09-15 12:47 | Emergency (ER) | payer MEDICARE, OTHER ==
[~2018-09-15] VITALS: Ht 175.3 cm; Wt 108.6 kg
[~2018-09-15 12:47] MED LIST changes: +LISI-660 PO; +MAGN400T25 PO; +METF-960 PO; -METF500T4 PO; +PANT40TA25 PO; -QUET100T PO
[2018-09-15] MEDS ORDERED: GLIP10 PO (13:45)
[2018-09-15] MEDS ORDERED: AMIT10TA6 PO (13:45)
[2018-09-15] MEDS ORDERED: CITA10TA68 PO (13:45)
[2018-09-15] MEDS ORDERED: METO25XL PO (13:45)
[2018-09-15 13:57] LABS: BASOPHILS % (AUTO) 0.7 % (0.0-2.0); EOSINOPHILS % (AUTO) 0 % (1.0-6.0); HEMATOCRIT 39.7 % (36-46); HEMOGLOBIN 13.6 g/dL (12.0-16.0); LYMPHOCYTES # (AUTO) 1.4 K/uL (1.0-4.8); LYMPHOCYTES % (AUTO) 8.8 % (22.0-44.0); MEAN CORPUSCULAR HEMOGLOBIN 30.8 pg (26.0-34.0); MEAN CORPUSCULAR HGB CONC 34.4 G/dL (31.0-37.0); MEAN CORPUSCULAR VOLUME 90 fL (80-100); MONOCYTES # (AUTO) 0.4 K/uL (0.1-1.0); MONOCYTES % (AUTO) 2.7 % (2.0-9.0); NEUTROPHILS # (AUTO) 13.4 K/uL (1.8-7.7); PLATELET COUNT (AUTO) 301 K/uL (150-450); RED BLOOD CELL COUNT(AUTO) 4.43 MIL/uL (4.00-5.20)
[2018-09-15 13:58] LABS: NEUTROPHILS % (AUTO) 87.8 % (40.0-70.0)
[2018-09-15 14:09] LABS: ANION GAP 12 mmol/L (8-16); CALCIUM, TOTAL 10.7 mg/dL (8.8-10.5); CARBON DIOXIDE 24 mmol/L (22-29); CHLORIDE 96 mmol/L (98-107); CREATININE 0.81 mg/dL (0.60-1.30); GLOMERULAR FILTR. RATE CALC > 60 mL/min (>60); GLUCOSE,RANDOM 345 mg/dL (70-110); POTASSIUM 4.4 mmol/L (3.5-5.1); SODIUM SERUM 132 mmol/L (136-145); UREA NITROGEN, BLOOD 11 mg/dL (7-18)
[2018-09-15] MEDS ORDERED: ONDANSETRON HCL 4 MG/2 ML VIAL IVP ONE (14:15)
[2018-09-15] MEDS ORDERED: SODIUM CHLORIDE 0.9% 1,000 ML IV ONE (14:15)
[2018-09-15] MEDS ORDERED: HYDROmorphone 2 MG/ML SYRINGE IVP ONE (14:15)
[2018-09-15] MEDS ORDERED: BARIUM SULFATE 0.1% SUSPENSION 450 ML BOTTLE PO ONE (14:15)
[2018-09-15] MEDS ORDERED: ATOR40TA71 PO (14:17)
[2018-09-15] MEDS ORDERED: RANI150T7 PO (14:17)
[2018-09-15] MEDS ORDERED: METO25 PO (14:17)
[2018-09-15] MEDS ORDERED: FURO20TA4 PO (14:17)
[2018-09-15] MEDS ORDERED: LISI-661 PO (14:17)
[2018-09-15] MEDS ORDERED: CITA-106 PO (14:17)
[2018-09-15] MEDS ORDERED: AMIT50TA3 PO (14:17)
[2018-09-15 14:20] LABS: ALANINE AMINOTRANSFERASE 22 U/L (12-78); ALBUMIN 4.1 g/dL (3.4-5.0); ALKALINE PHOSPHATASE 119 U/L (46-116); ASPARTATE AMINOTRANSFERASE 17 U/L (15-37); BILIRUBIN,TOTAL 0.8 mg/dL (0.1-1.0); HCG,QUANTITATIVE < 1 mIU/mL (0-6); TOTAL PROTEIN, SERUM 8.7 g/dL (6.4-8.2)
[2018-09-15] MEDS ORDERED: IOVERSOL 350 MG/ML 100 ML VIAL ONE (15:42)
[2018-09-15] MEDS ORDERED: SODIUM CHLORIDE 0.9% 100 ML ONE (15:42)
[2018-09-15 17:22] VITALS: BP 126/68
[2018-09-15 18:23] LABS: AMPHET/METH SCREEN,URINE NEGATIVE (NEGATIVE); BARBITURATE SCREEN, URINE NEGATIVE (NEGATIVE); BENZODIAZEPINES SCREEN,URINE NEGATIVE (NEGATIVE); CANNABINOID SCREEN,URINE NEGATIVE (NEGATIVE); COCAINE SCREEN,URINE POSITIVE (NEGATIVE); METHADONE SCREEN, URINE NEGATIVE (NEGATIVE); OPIATE SCREEN,URINE POSITIVE (NEGATIVE)
[2018-09-15 18:24] LABS: PHENCYCLIDINE SCREEN,URINE NEGATIVE (NEGATIVE)
== END 2018-09-15 17:30 | disposition home or self-care (01) ==
LOC: EMS 12:49
DX: E11.65 Type 2 diabetes mellitus with hyperglycemia (principal); R10.84 Generalized abdominal pain; R42 Dizziness and giddiness; I11.0 Hypertensive heart disease with heart failure; I50.9 Heart failure, unspecified; F31.9 Bipolar disorder, unspecified; F20.9 Schizophrenia, unspecified; F17.210 Nicotine dependence, cigarettes, uncomplicated; Z88.2 Allergy status to sulfonamides; Z88.8 Allergy status to other drugs, medicaments and biological substances; Z79.84 Long term (current) use of oral hypoglycemic drugs; Z79.899 Other long term (current) drug therapy
CPT/HCPCS: 36415; 71045; 74177; 80053; 80307; 84484; 84702; 85025; 96361; 96374; 96375; 99284; 99406; G0480; J1170; J2405; J7050; Q9967

== ENCOUNTER 2018-10-18 21:05 | Emergency (ER) | payer MEDICARE, OTHER ==
[~2018-10-18] VITALS: Ht 175.3 cm; Wt 104.4 kg
[~2018-10-18 21:05] MED LIST changes: +AMIT50TA3 PO; +ATOR40TA71 PO; +CITA-106 PO; +FURO20TA4 PO; +GLIP10 PO; -LISI-660 PO; +LISI-661 PO; -MAGN400T25 PO; +METO25 PO; -PANT40TA25 PO; +RANI150T7 PO; -SIMV40TA5 PO; -VITAD1000 PO
[2018-10-18 22:30] LABS: GLUCOSE,POINT OF CARE 262 MG/DL (70-110)
[2018-10-18] MEDS ORDERED: MORPHINE SULFATE 2 MG/ML SYRINGE IVP ONE (23:00)
[2018-10-18] MEDS ORDERED: SODIUM CHLORIDE 0.9% 2,000 ML IV ONE (23:00)
[2018-10-18] MEDS ORDERED: DIPHENOXYLATE/ATROP 2.5-0.025 MG TABLET PO ONE (23:00)
[2018-10-18] MEDS ORDERED: ACETAMINOPHEN 500 MG TABLET PO ONE (23:00)
[2018-10-18] MEDS ORDERED: ONDANSETRON HCL 4 MG/2 ML VIAL IVP ONE (23:00)
[2018-10-18 23:10] LABS: BASOPHILS % (AUTO) 0.5 % (0.0-2.0); EOSINOPHILS % (AUTO) 0.6 % (1.0-6.0); HEMATOCRIT 42.3 % (36-46); LYMPHOCYTES % (AUTO) 16.2 % (22.0-44.0); MEAN CORPUSCULAR VOLUME 91 fL (80-100); MONOCYTES # (AUTO) 0.5 K/uL (0.1-1.0); MONOCYTES % (AUTO) 3.8 % (2.0-9.0); NEUTROPHILS # (AUTO) 9.6 K/uL (1.8-7.7); NEUTROPHILS % (AUTO) 78.9 % (40.0-70.0); PLATELET COUNT (AUTO) 267 K/uL (150-450); RED BLOOD CELL COUNT(AUTO) 4.65 MIL/uL (4.00-5.20); RED CELL DISTRIBUTION WIDTH 14.2 % (11.5-14.5)
[2018-10-18 23:19] LABS: ANION GAP 11 mmol/L (8-16); CALCIUM, TOTAL 9.2 mg/dL (8.8-10.5); CARBON DIOXIDE 21 mmol/L (22-29); CHLORIDE 102 mmol/L (98-107); CREATININE 1.03 mg/dL (0.60-1.30); GLOMERULAR FILTR. RATE CALC > 60 mL/min (>60); GLUCOSE,RANDOM 273 mg/dL (70-110); POTASSIUM 5.2 mmol/L (3.5-5.1); SODIUM SERUM 134 mmol/L (136-145); UREA NITROGEN, BLOOD 14 mg/dL (7-18)
[2018-10-18 23:31] LABS: ALANINE AMINOTRANSFERASE 20 U/L (12-78); ALBUMIN 3.5 g/dL (3.4-5.0); ALKALINE PHOSPHATASE 71 U/L (46-116); ASPARTATE AMINOTRANSFERASE 11 U/L (15-37); BILIRUBIN,TOTAL 0.4 mg/dL (0.1-1.0); HCG,QUANTITATIVE < 1 mIU/mL (0-6); LIPASE 100 U/L (73-393); TOTAL PROTEIN, SERUM 6.9 g/dL (6.4-8.2)
[2018-10-19] MEDS ORDERED: HYDROmorphone 2 MG/ML SYRINGE IVP ONE (01:45)
[2018-10-19 03:00] VITALS: BP 118/71
== END 2018-10-19 03:05 | disposition home or self-care (01) ==
LOC: EMS 21:06
DX: K52.9 Noninfective gastroenteritis and colitis, unspecified (principal); E11.65 Type 2 diabetes mellitus with hyperglycemia; F25.9 Schizoaffective disorder, unspecified; E86.0 Dehydration; I11.0 Hypertensive heart disease with heart failure; I50.9 Heart failure, unspecified; F31.9 Bipolar disorder, unspecified; F17.210 Nicotine dependence, cigarettes, uncomplicated; Z88.2 Allergy status to sulfonamides; Z88.1 Allergy status to other antibiotic agents; Z79.899 Other long term (current) drug therapy; Z79.84 Long term (current) use of oral hypoglycemic drugs
CPT/HCPCS: 36415; 74176; 80053; 82962; 83690; 84484; 84702; 85025; 93005; 96361; 96374; 96375 ×2; 99284; 99406; J1170; J2270; J2405; J7030

== ENCOUNTER 2019-11-13 20:54 | Inpatient (IN) | payer MEDICARE, OTHER ==
[~2019-11-13] VITALS: Ht 175.3 cm; Wt 98.3 kg
[~2019-11-13 20:54] MED LIST changes: -CITA-106 PO; +CITA-144 PO
[2019-11-13] MEDS ORDERED: SODIUM CHLORIDE 0.9% 500 ML IV ONE (22:15)
[2019-11-13 22:35] LABS: BASOPHILS % (AUTO) 0.6 % (0.0-2.0); EOSINOPHILS % (AUTO) 1.1 % (1.0-6.0); HEMATOCRIT 35.6 % (36-46); HEMOGLOBIN 12.1 g/dL (12.0-16.0); LYMPHOCYTES # (AUTO) 3.1 K/uL (1.0-4.8); LYMPHOCYTES % (AUTO) 29.2 % (22.0-44.0); MEAN CORPUSCULAR HGB CONC 33.9 G/dL (31.0-37.0); MEAN CORPUSCULAR VOLUME 86 fL (80-100); MONOCYTES # (AUTO) 0.9 K/uL (0.1-1.0); MONOCYTES % (AUTO) 8.2 % (2.0-9.0); NEUTROPHILS # (AUTO) 6.4 K/uL (1.8-7.7); NEUTROPHILS % (AUTO) 60.9 % (40.0-70.0); PLATELET COUNT (AUTO) 305 K/uL (150-450); RED BLOOD CELL COUNT(AUTO) 4.16 MIL/uL (4.00-5.20); RED CELL DISTRIBUTION WIDTH 16.1 % (11.5-14.5)
[2019-11-13 22:47] LABS: PROTHROMBIN TIME 10.6 SEC (9.4-11.6)
[2019-11-13 22:56] LABS: B-TYPE NATRIURETIC PEPTIDE 11 pg/mL (0-100)
[2019-11-13 22:59] LABS: ALANINE AMINOTRANSFERASE 31 U/L (12-78); ALBUMIN 3.5 g/dL (3.4-5.0); ALKALINE PHOSPHATASE 99 U/L (46-116); ANION GAP 11 mmol/L (8-16); ASPARTATE AMINOTRANSFERASE 35 U/L (15-37); BILIRUBIN,TOTAL 0.6 mg/dL (0.1-1.0); CALCIUM, TOTAL 8.6 mg/dL (8.8-10.5); CARBON DIOXIDE 25 mmol/L (22-29); CHLORIDE 101 mmol/L (98-107); CREATINE KINASE, TOTAL ONLY 675 U/L (26-192); GLOMERULAR FILTR. RATE CALC > 60 mL/min (>60); GLUCOSE,RANDOM 244 mg/dL (70-110); SODIUM SERUM 137 mmol/L (136-145); TOTAL PROTEIN, SERUM 7.4 g/dL (6.4-8.2); UREA NITROGEN, BLOOD 7 mg/dL (7-18)
[2019-11-13 23:00] LABS: HCG,QUANTITATIVE 1 mIU/mL (0-6)
[2019-11-13 23:02] LABS: POTASSIUM 2.9 mmol/L (3.5-5.1)
[2019-11-13] MEDS ORDERED: POTASSIUM CHLORIDE 20 MEQ ER TABLET PO ONE (23:15)
[2019-11-13] MEDS: POTASSIUM CHL 10 MEQ/WATER 50 ML IV SCH (23:21)
[2019-11-13] MEDS ORDERED: ZOLPIDEM TARTRATE 5 MG TABLET PO PRN (23:30)
[2019-11-13] MEDS ORDERED: MORPHINE SULFATE 2 MG/ML SYRINGE IVP PRN (23:30)
[2019-11-13] MEDS ORDERED: MAGNESIUM SULFATE 2 GM, MVI, ADULT NO.1 WITH VIT K 10 ML, THIAMINE 100 MG, FOLIC ACID 1... IV ONE ×5 (23:30)
[2019-11-13] MEDS ORDERED: ONDANSETRON HCL 4 MG/2 ML VIAL IVP PRN (23:30)
[2019-11-13] MEDS ORDERED: MAGNESIUM HYDROXIDE SUSPENSION 30 ML UDCUP PO PRN (23:30)
[2019-11-13] MEDS ORDERED: ACETAMINOPHEN 325 MG TABLET PO PRN (23:30)
[2019-11-13] MEDS ORDERED: HYDROCODONE/ACETAMINOPHEN 5-325 MG TABLET PO PRN (23:30)
[2019-11-13] MEDS ORDERED: BISACODYL 10 MG RECTAL RECTAL SUPPOSITORY PR PRN (23:30)
[2019-11-14] MEDS ORDERED: SODIUM CHLORIDE 0.9% 250 ML IV ONE (00:38)
[2019-11-14] MEDS: POTASSIUM CHL 10 MEQ/WATER 50 ML IV SCH (00:52)
[2019-11-14 01:06] VITALS: BP 141/89
[2019-11-14 04:08] VITALS: BP 116/72
[2019-11-14] MEDS: GlipiZIDE 10 MG TABLET PO SCH ×2 (06:25→17:34)
[2019-11-14 06:51] LABS: ANION GAP 12 mmol/L (8-16); CALCIUM, TOTAL 7.9 mg/dL (8.8-10.5); CARBON DIOXIDE 23 mmol/L (22-29); CHLORIDE 104 mmol/L (98-107); CREATININE 0.69 mg/dL (0.60-1.30); GLOMERULAR FILTR. RATE CALC > 60 mL/min (>60); GLUCOSE,RANDOM 135 mg/dL (70-110); SODIUM SERUM 139 mmol/L (136-145); UREA NITROGEN, BLOOD 4 mg/dL (7-18)
[2019-11-14 06:55] LABS: POTASSIUM 2.9 mmol/L (3.5-5.1)
[2019-11-14] MEDS: MetFORMIN HCL 500 MG TABLET PO SCH ×2 (08:00→17:34)
[2019-11-14 08:05] VITALS: BP 129/82
[2019-11-14] MEDS: CITALOPRAM HYDROBROMIDE 20 MG TABLET PO SCH (09:18)
[2019-11-14] MEDS: DOCUSATE SODIUM 100 MG CAPSULE PO SCH ×2 (09:18→19:55)
[2019-11-14] MEDS: HEPARIN SODIUM,PORCINE 5,000 UNITS/ML VIAL SQ SCH ×3 (09:18→17:34)
[2019-11-14] MEDS: QUEtiapine FUMARATE 300 MG TABLET PO SCH ×2 (09:18→19:55)
[2019-11-14] MEDS: AMITRIPTYLINE HCL 50 MG TABLET PO SCH (09:18)
[2019-11-14] MEDS: METOPROLOL TARTRATE 25 MG TABLET PO SCH ×2 (09:19→19:55)
[2019-11-14] MEDS: FUROSEMIDE 20 MG TABLET PO SCH (09:19)
[2019-11-14] MEDS: LISINOPRIL 10 MG TABLET PO SCH (09:19)
[2019-11-14] MEDS: PANTOPRAZOLE SODIUM 40 MG DR TABLET PO SCH (09:19)
[2019-11-14] MEDS: POTASSIUM CHL 10 MEQ/WATER 50 ML IV PRN ×4 (09:20→12:19)
[2019-11-14] MEDS: POTASSIUM CHLORIDE 20 MEQ ER TABLET PO PRN (14:53)
[2019-11-14 16:15] VITALS: BP 103/65
[2019-11-14 19:40] VITALS: BP 105/58
[2019-11-14] MEDS: ATORVASTATIN CALCIUM 40 MG TABLET PO SCH (19:55)
[2019-11-14] MEDS: OLANZapine 10 MG TABLET PO SCH (19:55)
[2019-11-14] MEDS: MIRTAZAPINE 30 MG TABLET PO SCH (19:55)
[2019-11-14 20:43] LABS: GLUCOMETER DEV NAME(LOC) 5S.2A; GLUCOSE,POINT OF CARE 173 MG/DL (70-110)
[2019-11-14 20:44] LABS: GLUCOMETER DEV NAME(LOC) 5N.1; GLUCOSE,POINT OF CARE 163 MG/DL (70-110)
[2019-11-14 20:44] LABS: GLUCOMETER DEV NAME(LOC) 5S.2A; GLUCOSE,POINT OF CARE 152 MG/DL (70-110)
[2019-11-14 23:44] VITALS: BP 102/72
[2019-11-15] MEDS: HEPARIN SODIUM,PORCINE 5,000 UNITS/ML VIAL SQ SCH ×3 (01:23→17:14)
[2019-11-15 05:23] VITALS: BP 114/73
[2019-11-15] MEDS: GlipiZIDE 10 MG TABLET PO SCH ×2 (06:53→18:18)
[2019-11-15 07:41] VITALS: BP 119/83
[2019-11-15] MEDS: QUEtiapine FUMARATE 300 MG TABLET PO SCH ×2 (08:12→21:44)
[2019-11-15] MEDS: MetFORMIN HCL 500 MG TABLET PO SCH ×2 (08:12→18:18)
[2019-11-15] MEDS: AMITRIPTYLINE HCL 50 MG TABLET PO SCH (08:12)
[2019-11-15] MEDS: METOPROLOL TARTRATE 25 MG TABLET PO SCH ×2 (08:12→21:44)
[2019-11-15] MEDS: PANTOPRAZOLE SODIUM 40 MG DR TABLET PO SCH (08:12)
[2019-11-15] MEDS: LISINOPRIL 10 MG TABLET PO SCH (08:12)
[2019-11-15] MEDS: DOCUSATE SODIUM 100 MG CAPSULE PO SCH ×2 (08:12→21:00)
[2019-11-15] MEDS: FUROSEMIDE 20 MG TABLET PO SCH (08:12)
[2019-11-15] MEDS: CITALOPRAM HYDROBROMIDE 20 MG TABLET PO SCH (08:12)
[2019-11-15 09:25] LABS: ANION GAP 7 mmol/L (8-16); CALCIUM, TOTAL 8.5 mg/dL (8.8-10.5); CARBON DIOXIDE 24 mmol/L (22-29); CHLORIDE 105 mmol/L (98-107); CREATINE KINASE, TOTAL ONLY 194 U/L (26-192); CREATININE 0.72 mg/dL (0.60-1.30); GLOMERULAR FILTR. RATE CALC > 60 mL/min (>60); GLUCOSE,RANDOM 214 mg/dL (70-110); POTASSIUM 3.5 mmol/L (3.5-5.1); SODIUM SERUM 136 mmol/L (136-145); UREA NITROGEN, BLOOD 5 mg/dL (7-18)
[2019-11-15] MEDS ORDERED: MAGNESIUM OXIDE 400 MG TABLET PO PRN (11:15)
[2019-11-15] MEDS ORDERED: MAGNESIUM SULFATE 2 GM/WATER 50 ML IV PRN (11:15)
[2019-11-15 11:49] VITALS: BP 136/84
[2019-11-15] MEDS ORDERED: DEXTROSE 50%-WATER 25 GM/50 ML SYRINGE IVP PRN (12:15)
[2019-11-15] MEDS: INSULIN LISPRO 100 UNITS/ML SQ PRN (13:13)
[2019-11-15] MEDS ORDERED: SODIUM CHLORIDE 0.9% 250 ML IV ONE (13:15)
[2019-11-15 16:08] VITALS: BP 141/90
[2019-11-15] MEDS: POTASSIUM CHLORIDE 20 MEQ ER TABLET PO PRN (18:21)
[2019-11-15 19:41] VITALS: BP 123/83
[2019-11-15] MEDS: ATORVASTATIN CALCIUM 40 MG TABLET PO SCH (21:43)
[2019-11-15] MEDS: MIRTAZAPINE 30 MG TABLET PO SCH (21:44)
[2019-11-15] MEDS: OLANZapine 10 MG TABLET PO SCH (21:45)
[2019-11-16] VITALS (7 sets, daily range): BP systolic 124–149; BP diastolic 79–93
[2019-11-16] MEDS: HEPARIN SODIUM,PORCINE 5,000 UNITS/ML VIAL SQ SCH ×4 (01:12→23:45)
[2019-11-16 01:31] LABS: GLUCOMETER DEV NAME(LOC) 5N.1; GLUCOSE,POINT OF CARE 117 MG/DL (70-110)
[2019-11-16 01:31] LABS: GLUCOMETER DEV NAME(LOC) 5S.1; GLUCOSE,POINT OF CARE 92 MG/DL (70-110)
[2019-11-16 01:31] LABS: GLUCOMETER DEV NAME(LOC) 5S.1; GLUCOSE,POINT OF CARE 238 MG/DL (70-110)
[2019-11-16 01:31] LABS: GLUCOMETER DEV NAME(LOC) 5S.1; GLUCOSE,POINT OF CARE 212 MG/DL (70-110)
[2019-11-16 01:31] LABS: GLUCOMETER DEV NAME(LOC) 5S.1; GLUCOSE,POINT OF CARE 157 MG/DL (70-110)
[2019-11-16 01:31] LABS: GLUCOMETER DEV NAME(LOC) 5S.1; GLUCOSE,POINT OF CARE 215 MG/DL (70-110)
[2019-11-16] MEDS: GlipiZIDE 10 MG TABLET PO SCH ×2 (06:24→16:59)
[2019-11-16 06:26] LABS: GLUCOMETER DEV NAME(LOC) 5S.1; GLUCOSE,POINT OF CARE 146 MG/DL (70-110)
[2019-11-16 08:31] LABS: ANION GAP 11 mmol/L (8-16); CALCIUM, TOTAL 9.1 mg/dL (8.8-10.5); CARBON DIOXIDE 23 mmol/L (22-29); CHLORIDE 106 mmol/L (98-107); CREATININE 0.67 mg/dL (0.60-1.30); GLOMERULAR FILTR. RATE CALC > 60 mL/min (>60); GLUCOSE,RANDOM 148 mg/dL (70-110); POTASSIUM 3.8 mmol/L (3.5-5.1); SODIUM SERUM 140 mmol/L (136-145); UREA NITROGEN, BLOOD 6 mg/dL (7-18)
[2019-11-16] MEDS: LISINOPRIL 10 MG TABLET PO SCH (08:36)
[2019-11-16] MEDS: FUROSEMIDE 20 MG TABLET PO SCH (08:36)
[2019-11-16] MEDS: QUEtiapine FUMARATE 300 MG TABLET PO SCH ×2 (08:36→20:07)
[2019-11-16] MEDS: METOPROLOL TARTRATE 25 MG TABLET PO SCH ×2 (08:36→20:07)
[2019-11-16] MEDS: MetFORMIN HCL 500 MG TABLET PO SCH ×2 (08:36→17:00)
[2019-11-16] MEDS: CITALOPRAM HYDROBROMIDE 20 MG TABLET PO SCH (08:36)
[2019-11-16] MEDS: AMITRIPTYLINE HCL 50 MG TABLET PO SCH (08:36)
[2019-11-16] MEDS: DOCUSATE SODIUM 100 MG CAPSULE PO SCH ×2 (08:37→20:08)
[2019-11-16] MEDS: PANTOPRAZOLE SODIUM 40 MG DR TABLET PO SCH (08:37)
[2019-11-16] MEDS ORDERED: ALBUTEROL SULFATE 2.5 MG/0.5 ML NEB SOLUTION NEB PRN (11:00)
[2019-11-16] MEDS: MAGNESIUM SULFATE 4 GM/WATER 100 ML IV PRN (11:32)
[2019-11-16] MEDS: INSULIN LISPRO 100 UNITS/ML SQ PRN ×2 (11:33→17:05)
[2019-11-16 19:41] LABS: GLUCOMETER DEV NAME(LOC) 5S.1; GLUCOSE,POINT OF CARE 194 MG/DL (70-110)
[2019-11-16] MEDS: OLANZapine 10 MG TABLET PO SCH (20:07)
[2019-11-16] MEDS: ATORVASTATIN CALCIUM 40 MG TABLET PO SCH (20:07)
[2019-11-16] MEDS: MIRTAZAPINE 30 MG TABLET PO SCH (20:07)
[2019-11-16 21:58] LABS: GLUCOMETER DEV NAME(LOC) 5N.1; GLUCOSE,POINT OF CARE 191 MG/DL (70-110)
[2019-11-17 02:16] LABS: GLUCOMETER DEV NAME(LOC) 5S.2A; GLUCOSE,POINT OF CARE 144 MG/DL (70-110)
[2019-11-17 04:27] VITALS: BP 133/90
[2019-11-17] MEDS: GlipiZIDE 10 MG TABLET PO SCH (06:14)
[2019-11-17 06:41] LABS: ANION GAP 10 mmol/L (8-16); CALCIUM, TOTAL 9.2 mg/dL (8.8-10.5); CARBON DIOXIDE 27 mmol/L (22-29); CHLORIDE 102 mmol/L (98-107); CREATININE 0.57 mg/dL (0.60-1.30); GLOMERULAR FILTR. RATE CALC > 60 mL/min (>60); GLUCOSE,RANDOM 140 mg/dL (70-110); POTASSIUM 3.7 mmol/L (3.5-5.1); SODIUM SERUM 139 mmol/L (136-145); UREA NITROGEN, BLOOD 6 mg/dL (7-18)
[2019-11-17 06:53] LABS: GLUCOMETER DEV NAME(LOC) 5S.2A; GLUCOSE,POINT OF CARE 140 MG/DL (70-110)
[2019-11-17 08:00] VITALS: BP 129/93
[2019-11-17] MEDS: HEPARIN SODIUM,PORCINE 5,000 UNITS/ML VIAL SQ SCH (08:00)
[2019-11-17] MEDS: AMITRIPTYLINE HCL 50 MG TABLET PO SCH (08:10)
[2019-11-17] MEDS: QUEtiapine FUMARATE 300 MG TABLET PO SCH (08:11)
[2019-11-17] MEDS: CITALOPRAM HYDROBROMIDE 20 MG TABLET PO SCH (08:11)
[2019-11-17] MEDS: LISINOPRIL 10 MG TABLET PO SCH (08:11)
[2019-11-17] MEDS: FUROSEMIDE 20 MG TABLET PO SCH (08:11)
[2019-11-17] MEDS: DOCUSATE SODIUM 100 MG CAPSULE PO SCH (08:11)
[2019-11-17] MEDS: MetFORMIN HCL 500 MG TABLET PO SCH (08:14)
[2019-11-17] MEDS: METOPROLOL TARTRATE 25 MG TABLET PO SCH (09:05)
[2019-11-17] MEDS: MAGNESIUM SULFATE 4 GM/WATER 100 ML IV PRN (09:05)
[2019-11-17] MEDS: PANTOPRAZOLE SODIUM 40 MG DR TABLET PO SCH (09:05)
[2019-11-17] MEDS: INSULIN LISPRO 100 UNITS/ML SQ PRN (11:56)
[2019-11-17 19:56] LABS: GLUCOMETER DEV NAME(LOC) 5S.2A; GLUCOSE,POINT OF CARE 321 MG/DL (70-110)
== END 2019-11-17 15:25 | disposition home or self-care (01) | DRG 557 ==
LOC: EMS 20:56 → 5S 23:28
PROVIDERS: ADMIT Internal Medicine; ATTEND Internal Medicine
DX: M62.82 Rhabdomyolysis (principal); G93.41 Metabolic encephalopathy; I10 Essential (primary) hypertension; F10.129 Alcohol abuse with intoxication, unspecified; E87.6 Hypokalemia; E78.5 Hyperlipidemia, unspecified; E83.42 Hypomagnesemia; K74.60 Unspecified cirrhosis of liver; E11.65 Type 2 diabetes mellitus with hyperglycemia; F31.9 Bipolar disorder, unspecified; F20.9 Schizophrenia, unspecified; Z87.891 Personal history of nicotine dependence; Z88.2 Allergy status to sulfonamides; Z88.8 Allergy status to other drugs, medicaments and biological substances
CPT/HCPCS: 83735; 84132; 93005; 97162; G0480; J1644; J3411; J3475; J3480; J3490; J7030; J7040; J7050

== ENCOUNTER 2020-01-06 20:49 | Emergency (ER) | payer MEDICARE, OTHER ==
[~2020-01-06] VITALS: Ht 167.6 cm; Wt 96.7 kg
[2020-01-06] MEDS ORDERED: ASPI-728 PO (21:59)
[2020-01-06] MEDS ORDERED: SITA25 PO (21:59)
[2020-01-06] MEDS ORDERED: BUSP10TA23 PO (21:59)
[2020-01-06 22:36] LABS: BASOPHILS % (AUTO) 0.8 % (0.0-2.0); EOSINOPHILS % (AUTO) 2.1 % (1.0-6.0); HEMATOCRIT 36.6 % (36-46); HEMOGLOBIN 12.6 g/dL (12.0-16.0); LYMPHOCYTES # (AUTO) 2.1 K/uL (1.0-4.8); LYMPHOCYTES % (AUTO) 22.5 % (22.0-44.0); MEAN CORPUSCULAR HEMOGLOBIN 30.6 pg (26.0-34.0); MEAN CORPUSCULAR HGB CONC 34.6 G/dL (31.0-37.0); MEAN CORPUSCULAR VOLUME 88 fL (80-100); MONOCYTES # (AUTO) 0.4 K/uL (0.1-1.0); MONOCYTES % (AUTO) 4.5 % (2.0-9.0); NEUTROPHILS # (AUTO) 6.6 K/uL (1.8-7.7); NEUTROPHILS % (AUTO) 70.1 % (40.0-70.0); PLATELET COUNT (AUTO) 255 K/uL (150-450); RED BLOOD CELL COUNT(AUTO) 4.14 MIL/uL (4.00-5.20); RED CELL DISTRIBUTION WIDTH 15.8 % (11.5-14.5)
[2020-01-06 22:42] LABS: ANION GAP 7 mmol/L (8-16); CALCIUM, TOTAL 9.1 mg/dL (8.8-10.5); CARBON DIOXIDE 27 mmol/L (22-29); CHLORIDE 100 mmol/L (98-107); CREATININE 0.92 mg/dL (0.60-1.30); GLOMERULAR FILTR. RATE CALC > 60 mL/min (>60); GLUCOSE,RANDOM 341 mg/dL (70-110); POTASSIUM 3.8 mmol/L (3.5-5.1); SODIUM SERUM 134 mmol/L (136-145); UREA NITROGEN, BLOOD 8 mg/dL (7-18)
[2020-01-06 22:56] LABS: SALICYLATE < 2.8 mg/dL (2.8-20.0)
[2020-01-06 22:57] LABS: ACETAMINOPHEN < 2 mcg/mL (10-30); ALANINE AMINOTRANSFERASE 15 U/L (12-78); ALBUMIN 3.1 g/dL (3.4-5.0); ALKALINE PHOSPHATASE 83 U/L (46-116); ASPARTATE AMINOTRANSFERASE 12 U/L (15-37); BILIRUBIN,TOTAL 0.4 mg/dL (0.1-1.0); HCG,QUANTITATIVE < 1 mIU/mL (0-6); TOTAL PROTEIN, SERUM 6.8 g/dL (6.4-8.2)
[2020-01-06 23:17] LABS: GLUCOSE,POINT OF CARE 332 MG/DL (70-110)
[2020-01-07 00:02] LABS: AMPHET/METH SCREEN,URINE NEGATIVE (NEGATIVE); BARBITURATE SCREEN, URINE NEGATIVE (NEGATIVE); BENZODIAZEPINES SCREEN,URINE NEGATIVE (NEGATIVE); CANNABINOID SCREEN,URINE NEGATIVE (NEGATIVE); COCAINE SCREEN,URINE POSITIVE (NEGATIVE); METHADONE SCREEN, URINE NEGATIVE (NEGATIVE); OPIATE SCREEN,URINE NEGATIVE (NEGATIVE)
[2020-01-07 00:06] LABS: PHENCYCLIDINE SCREEN,URINE NEGATIVE (NEGATIVE)
[2020-01-07 03:57] VITALS: BP 127/78
== END 2020-01-07 04:21 | disposition home or self-care (01) ==
LOC: EMS 20:49
DX: F14.10 Cocaine abuse, uncomplicated (principal); I11.0 Hypertensive heart disease with heart failure; I50.9 Heart failure, unspecified; F31.9 Bipolar disorder, unspecified; F20.9 Schizophrenia, unspecified; Z79.84 Long term (current) use of oral hypoglycemic drugs
CPT/HCPCS: 36415; 70450; 80053; 80307; 82962; 84484; 84702; 85025; 93005; 99285; G0480; G0481